=== PATIENT | female | born 1970 | race Caucasian/White ===

== ENCOUNTER 2016-09-03 22:18 | Inpatient (IN) | payer OTHER ==
[~2016-09-03] VITALS: Ht 162.6 cm; Wt 69.0 kg
--- NOTE | ~2016-09-03 | PROC NOTE ---
[place], [place] PROCEDURE NOTE NAME: JOSH BAPTISTE UNIT #: [id number] ROOM: DOCTOR: GERSON PALOMINO MD BIRTHDATE: [birth year] DOS: 09/03/2016 PREOPERATIVE DIAGNOSES: Gastroesophageal reflux disease, constipation. POSTOPERATIVE DIAGNOSES: Gastroesophageal reflux disease, constipation. PROCEDURE: EGD, attempted colonoscopy. ENDOSCOPIST: Gerson Palomino MD PUBLIC INFORMATION RELATIONS MANAGER: PGY1. ANESTHESIA: MAC. INDICATIONS: This is a 45-year-old lady who has a history of previous gastric bypass and is having some symptoms of GERD and is on Prilosec as well as has history of constipation, who is here for the above-mentioned procedure. The procedure and its complications were explained to the patient in detail preoperatively. Complications that were discussed included but were not limited to bleeding, missed lesions, colon and gastric perforation. She agreed to proceed. DESCRIPTION OF PROCEDURE: After identifying the patient, the patient was brought to the operating suite and laid in the left lateral position. After IV sedation was administered, a bite block was placed and the EGD was performed first. An adult gastroscope was placed through the mouth and advanced sequentially into the pharynx, esophagus and to the stomach remnant. Both the afferent and the efferent limbs were visualized. There was found to be gastritis in the gastric remnant, but no active bleeding. There was mild esophagitis as well. These findings were confirmed upon withdrawal of the scope. I then turned towards the colonoscopy. A digital rectal exam was performed, which was found to be within normal limits, but there was a lot of stool, but no blood that could be seen. An adult colonoscope was now introduced into the anal canal, but it was very evident right on introduction that the prep was very poor and no visualization could be obtained. The scope was then withdrawn and the patient was then taken to the recovery room in stable fashion. There were no complications. Dr. Gerson Palomino, the attending endoscopist, was present throughout the operating case. [place], [place] PROCEDURE NOTE NAME: JOSH BAPTISTE UNIT #: [id number] ROOM: DOCTOR: GERSON PALOMINO MD BIRTHDATE: [birth year] Gerson Palomino MD CM:NIKKIE:PROCEDURE NOTE [id number] GERSON PALOMINO MD
[2016-09-03 07:00] VITALS: BP 130/76
[2016-09-03 08:15] VITALS: BP 103/65
[2016-09-03 08:30] VITALS: BP 101/55
[2016-09-03 08:44] VITALS: BP 111/71
[~2016-09-03 22:18] MED LIST: ALBUTEROL0.09 MG/A1 INH; ALLEGRA180 MG PO; ANAPROX DS550 MG PO; ANUSOL-HC25 MG RC; AUGMENTIN 875 M1 TAB PO; AUGMENTIN 875875 MG PO; BACTRIM DS 8001 TA1 PO; BENADRYL25 MG PO; BENTYL10 MG PO; BIAXIN500 MG PO; BIOTIN1 M1 PO; BIOTIN1000 MC1 PO; BYETTA10 MCG/0.0 PO; BYETTA10 MCG/0.0 SC; CEFUROXIME AXE250 MG PO; CIPRO250 MG PO; CIPRO500 MG PO; CIPROFLOXACIN500 MG PO; CLARITIN-D 12 H1 TAB PO; CLARITIN10 MG PO; CYCLOBENZAPRINE10 MG PO; DAYPRO600 M1 PO; DIFLUCAN100 MG PO; FLINTSTONES1 CTB PO; GLIPIZIDE10 MG PO; GLIPIZIDE5 MG PO; GLUCOPHAGE1000 MG PO; GLUCOPHAGE500 M1 PO; HYDROCODONE BIT1 T11 PO; IMODIUM2 MG PO; LEVOFLOXACIN500 MG PO; LOMOTIL 0.025 M1 TAB PO; LOPID600 MG PO; MACROBID100 M1 PO; MEDROL DOSEPAK4 MG PO; METFORMIN HCL1000 MG PO; METFORMIN1000 MG PO; MIDRIN (DURADR1 CAP PO; MOBIC7.5 MG PO; MOTRIN800 MG PO; Motrin,Rufen800 MG PO; NAPROSYN500 MG PO; NAPROXEN500 M1 PO; ONGLYZA5 MG PO; OXYCONTIN10 MG PO; PEPCID20 MG PO; PHENERGAN W/DM120 ML PO; PHENERGAN25 M1 PO; PREDNISONE10 MG PO; PREDNISONE20 MG PO; PREVACID30 M1 PO; PREVACID30 MG PO; PROAIR HFA0.09 MG/AC IH; PROTONIX40 MG PO; PYRIDIUM200 MG PO; REGLAN10 MG PO; ROBAXIN750 MG PO; TORADOL10 MG PO; TRAMADOL HCL50 MG PO; TRIMOX,POL250 MG/5 M PO; ULTRAM50 MG PO; VICODIN 500 MG-1 TAB PO; VITAMIN D2000 IU PO; VITAMIN D50000 I3 PO; WELCHOL625 MG PO; XANAX0.25 MG PO; ZITHROMAX Z PA250 MG PO; ZITHROMAX250 MG PO; ZOFRAN ODT4 MG SL; ZOFRAN ODT8 MG PO; ZOFRAN4 MG PO; Zofran4 MG PO
[2016-09-03 22:23] VITALS: BP 143/85
[2016-09-03 22:49] LABS: BASO % 0.3 % (0.0-1.0); EOS # 0.1 10*3/uL (0.0-0.4); EOS % 0.5 % (1.0-4.0); HEMATOCRIT 35.6 % (37.0-47.0); HEMOGLOBIN 11.2 g/dl (12.0-16.0); LYMPH # 2.4 10*3/uL (1.3-4.4); LYMPH % 20.8 % (27.0-41.0); MEAN CELL VOLUME 65.8 fl (81.0-99.0); MEAN CORPUSCULAR HGB 20.7 pg (27.0-31.0); MEAN CORPUSCULAR HGB CONC 31.5 g/dl (33.0-37.0); MEAN PLATELET VOLUME 10.1 fl (9.6-12.3); MONO # 0.6 10*3/uL (0.1-1.0); MONO % 4.9 % (3.0-9.0); NEUT # 8.4 10*3/uL (2.3-7.9); NEUT % 73.2 % (47.0-73.0); PLATELET COUNT AUTOMATED 354 10*3/uL (130-400); RED BLOOD COUNT 5.41 10*6/uL (4.10-5.10); RED CELL DISTRI WIDTH 15.3 % (0-14.5); WHITE BLOOD COUNT 11.5 10*3/uL (4.8-10.8)
[2016-09-03 23:02] LABS: ALBUMIN 3.5 gm/dl (3.1-4.5); ALKALINE PHOSPHATASE 56 U/L (45-117); BILIRUBIN, TOTAL 0.3 mg/dl (0.2-1.0); BUN 14 mg/dl (7-24); CARBON DIOXIDE 29 mmol/L (21-32); CHLORIDE 106 mmol/L (98-107); EST GLOM FILT AFRICAN AMERICAN > 60 ml/min; GLUCOSE 137 mg/dL (65-99); POTASSIUM 4.4 mmol/L (3.5-5.1); SGOT/AST 10 IU/L (3-35); SGPT/ALT 21 U/L (12-78); SODIUM 144 mmol/L (136-145); TOTAL PROTEIN 6.5 gm/dL (6.4-8.2)
[2016-09-04 03:30] VITALS: BP 132/76
[2016-09-04 06:24] LABS: BASO % 0.4 % (0.0-1.0); EOS # 0.1 10*3/uL (0.0-0.4); EOS % 0.9 % (1.0-4.0); HEMATOCRIT 33.3 % (37.0-47.0); HEMOGLOBIN 10.3 g/dl (12.0-16.0); LYMPH # 2.7 10*3/uL (1.3-4.4); LYMPH % 26.8 % (27.0-41.0); MEAN CELL VOLUME 66.2 fl (81.0-99.0); MEAN CORPUSCULAR HGB 20.5 pg (27.0-31.0); MEAN CORPUSCULAR HGB CONC 30.9 g/dl (33.0-37.0); MEAN PLATELET VOLUME 10.5 fl (9.6-12.3); MONO # 0.6 10*3/uL (0.1-1.0); MONO % 6.2 % (3.0-9.0); NEUT # 6.6 10*3/uL (2.3-7.9); NEUT % 65.4 % (47.0-73.0); PLATELET COUNT AUTOMATED 305 10*3/uL (130-400); RED BLOOD COUNT 5.03 10*6/uL (4.10-5.10); RED CELL DISTRI WIDTH 15.3 % (0-14.5); WHITE BLOOD COUNT 10.1 10*3/uL (4.8-10.8)
[2016-09-04 06:48] LABS: ALKALINE PHOSPHATASE 50 U/L (45-117); BILIRUBIN, TOTAL 0.5 mg/dl (0.2-1.0); BUN 11 mg/dl (7-24); CARBON DIOXIDE 30 mmol/L (21-32); CHLORIDE 107 mmol/L (98-107); CHOLESTEROL 114 mg/dL (<200); EST GLOM FILT AFRICAN AMERICAN > 60 ml/min; FREE T4 1.05 ng/dl (0.76-1.46); GLUCOSE 96 mg/dL (65-99); HDL CHOLESTEROL 41 mg/dl (40-60); LDL CHOLESTEROL 60 mg/dL (9-159); PHOSPHOROUS 3.2 mg/dL (2.5-4.9); POTASSIUM 3.7 mmol/L (3.5-5.1); SGOT/AST 7 IU/L (3-35); SGPT/ALT 18 U/L (12-78); SODIUM 142 mmol/L (136-145); TOTAL PROTEIN 5.6 gm/dL (6.4-8.2); TRIGLYCERIDES 65 mg/dl (<150); VLDL CHOLESTEROL 13 mg/dL (6-40)
[2016-09-04 06:49] LABS: PROTHROMBIN TIME 10.9 SECONDS (9.0-12.4)
[2016-09-04 06:53] LABS: THYROID STIM HORMONE (HS) 0.956 uIU/ml (0.358-4.75)
[2016-09-04 07:01] LABS: HEMOGLOBIN A1c 5.2 % (4.8-5.6)
[2016-09-04 07:56] LABS: FOLIC ACID 3.2 ng/mL (>5.38); VITAMIN D, 25-HYDROXY 15.1 ng/mL (30-100)
[2016-09-04 08:00] VITALS: BP 120/80
[2016-09-04 08:59] LABS: BILIRUBIN NEGATIVE (NEGATIVE); BLOOD NEGATIVE (NEGATIVE); CLARITY SL CLOUDY (CLEAR); COLOR YELLOW (YELLOW); GLUCOSE NEGATIVE (NEGATIVE); KETONE NEGATIVE (NEGATIVE); LEUKO ESTERASE NEGATIVE (NEGATIVE); NITRITE POSITIVE (NEGATIVE); PH 5.5 (5.0-9.0); PROTEIN NEGATIVE (NEGATIVE); SPECIFIC GRAVITY 1.015 (1.005-1.030)
[2016-09-04 09:18] LABS: BACTERIA 3+; RBC 0-2 rbc/hpf (0-2); URINE REFLEX COMMENT YES (NO)
[2016-09-04 12:00] VITALS: BP 126/78
[2016-09-04 16:00] VITALS: BP 102/63
[2016-09-04 20:00] VITALS: BP 111/57
[2016-09-05 08:00] VITALS: BP 124/72
[2016-09-05 12:00] VITALS: BP 118/66
[2016-09-05] MEDS ORDERED: Carafate1 GM/10 ML PO (15:20)
[2016-09-05] MEDS ORDERED: NATURE'S BLEND F1 MG PO (15:20)
[2016-09-05] MEDS ORDERED: B12100 MC1 PO (15:20)
[2016-09-05 16:00] VITALS: BP 118/71
[2016-09-05] MEDS ORDERED: BACTRIM DS 8001 TA1 PO (16:22)
== END 2016-09-05 16:56 | disposition home or self-care (01) | DRG 392 ==
LOC: ED 22:19 → EDHOLD 09-04 01:17 → 4E 09-04 01:33
PROVIDERS: Family Medicine; Physician Assistant
PROC: 0DJ08ZZ Inspection of Upper Intestinal Tract, Via Natural or Artificial Opening Endoscopic (ICD-10-PCS; principal; 2016-09-04)
PROC: 0DJD8ZZ Inspection of Lower Intestinal Tract, Via Natural or Artificial Opening Endoscopic (ICD-10-PCS; 2016-09-04)
DX: K29.70 Gastritis, unspecified, without bleeding (principal); E44.0 Moderate protein-calorie malnutrition; K21.0 Gastro-esophageal reflux disease with esophagitis; J45.909 Unspecified asthma, uncomplicated; K59.00 Constipation, unspecified; E53.8 Deficiency of other specified B group vitamins; R73.9 Hyperglycemia, unspecified; E55.9 Vitamin D deficiency, unspecified; D72.829 Elevated white blood cell count, unspecified; D50.9 Iron deficiency anemia, unspecified; Z98.84 Bariatric surgery status; Z68.26 Body mass index [BMI] 26.0-26.9, adult; Z87.891 Personal history of nicotine dependence; Z90.49 Acquired absence of other specified parts of digestive tract; Z88.8 Allergy status to other drugs, medicaments and biological substances; Z83.3 Family history of diabetes mellitus; Z82.49 Family history of ischemic heart disease and other diseases of the circulatory system; Z80.49 Family history of malignant neoplasm of other genital organs; Z80.8 Family history of malignant neoplasm of other organs or systems

== ENCOUNTER → 2016-12-25 | Emergency (ER) | payer OTHER ==
[~2016-12-25] VITALS: Ht 162.5 cm; Wt 64.4 kg
[~2016-12-25] MED LIST changes: +B12100 MC1 PO; +Carafate1 GM/10 ML PO; +NATURE'S BLEND F1 MG PO
== END ==
LOC: ED 21:57
DX: S52.601A Unspecified fracture of lower end of right ulna, initial encounter for closed fracture (principal); J45.909 Unspecified asthma, uncomplicated; K21.9 Gastro-esophageal reflux disease without esophagitis; F17.200 Nicotine dependence, unspecified, uncomplicated; Z88.6 Allergy status to analgesic agent; Z88.8 Allergy status to other drugs, medicaments and biological substances; Z79.899 Other long term (current) drug therapy; W10.9XXA Fall (on) (from) unspecified stairs and steps, initial encounter; Y93.01 Activity, walking, marching and hiking; Y92.89 Other specified places as the place of occurrence of the external cause; Y99.8 Other external cause status

== ENCOUNTER 2016-12-27 22:59 | Emergency (ER) | payer OTHER ==
[2016-12-27 23:23] LABS: BILIRUBIN NEGATIVE (NEGATIVE); BLOOD NEGATIVE (NEGATIVE); CLARITY CLEAR (CLEAR); COLOR YELLOW (YELLOW); GLUCOSE NEGATIVE (NEGATIVE); KETONE TRACE (NEGATIVE); LEUKO ESTERASE NEGATIVE (NEGATIVE); NITRITE NEGATIVE (NEGATIVE); PH 5.5 (5.0-9.0); PROTEIN NEGATIVE (NEGATIVE); SPECIFIC GRAVITY >= 1.030 (1.005-1.030); UROBILINOGEN 0.2 E.U./dl (0.2-1.0)
[2016-12-27 23:29] LABS: BACTERIA 1+
[2016-12-27 23:31] LABS: URINE REFLEX COMMENT NO (NO)
[2016-12-28] MEDS ORDERED: ULTRAM50 MG PO (01:46)
[2016-12-28] MEDS ORDERED: ZOFRAN ODT4 MG SL (01:46)
== END 2016-12-28 02:29 | disposition home or self-care (01) ==
LOC: ED 22:59
PROVIDERS: Emergency Medicine Emergency Medical Services
DX: K29.00 Acute gastritis without bleeding (principal); K21.9 Gastro-esophageal reflux disease without esophagitis; J45.909 Unspecified asthma, uncomplicated; Z98.84 Bariatric surgery status; F17.200 Nicotine dependence, unspecified, uncomplicated; Z88.6 Allergy status to analgesic agent; Z88.8 Allergy status to other drugs, medicaments and biological substances; Z79.899 Other long term (current) drug therapy

== ENCOUNTER 2017-01-24 18:04 | Emergency (ER) | payer OTHER ==
[~2017-01-24] VITALS: Ht 162.5 cm; Wt 66.2 kg
[2017-01-24] MEDS ORDERED: CYCLOBENZAPRINE10 MG PO (19:46)
[2017-01-24] MEDS ORDERED: NAPROSYN500 MG PO (19:46)
== END 2017-01-24 22:09 | disposition home or self-care (01) ==
LOC: ED 18:04
DX: S29.019A Strain of muscle and tendon of unspecified wall of thorax, initial encounter (principal); Z88.6 Allergy status to analgesic agent; Z88.8 Allergy status to other drugs, medicaments and biological substances; Z79.899 Other long term (current) drug therapy; Z87.891 Personal history of nicotine dependence; X58.XXXA Exposure to other specified factors, initial encounter; Y93.89 Activity, other specified; Y92.89 Other specified places as the place of occurrence of the external cause; Y99.8 Other external cause status

== ENCOUNTER 2017-03-15 07:51 | Emergency (ER) | payer OTHER ==
[~2017-03-15] VITALS: Ht 160 cm; Wt 65.8 kg
== END 2017-03-15 10:15 | disposition home or self-care (01) ==
LOC: ED 07:51
DX: S60.512A Abrasion of left hand, initial encounter (principal); M53.3 Sacrococcygeal disorders, not elsewhere classified; J45.909 Unspecified asthma, uncomplicated; G89.29 Other chronic pain; K21.9 Gastro-esophageal reflux disease without esophagitis; F17.200 Nicotine dependence, unspecified, uncomplicated; Z98.890 Other specified postprocedural states; Z98.84 Bariatric surgery status; Z90.710 Acquired absence of both cervix and uterus; Z79.899 Other long term (current) drug therapy; Z88.6 Allergy status to analgesic agent; Z88.5 Allergy status to narcotic agent; W10.8XXA Fall (on) (from) other stairs and steps, initial encounter; Y93.89 Activity, other specified; Y92.89 Other specified places as the place of occurrence of the external cause; Y99.9 Unspecified external cause status

== ENCOUNTER 2017-03-28 22:44 | Emergency (ER) | payer OTHER ==
[~2017-03-28] VITALS: Ht 162.5 cm; Wt 68.0 kg
[2017-03-28] MEDS ORDERED: SEPTDS PO (23:29)
== END 2017-03-28 23:33 | disposition home or self-care (01) ==
LOC: ED 22:44
DX: J32.9 Chronic sinusitis, unspecified (principal); J45.909 Unspecified asthma, uncomplicated; K21.9 Gastro-esophageal reflux disease without esophagitis; F17.200 Nicotine dependence, unspecified, uncomplicated; Z88.6 Allergy status to analgesic agent; Z88.8 Allergy status to other drugs, medicaments and biological substances; Z79.899 Other long term (current) drug therapy

== ENCOUNTER 2017-06-11 20:26 | Emergency (ER) | payer OTHER ==
[~2017-06-11] VITALS: Ht 160 cm; Wt 70.3 kg
[~2017-06-11 20:26] MED LIST changes: +SEPTDS PO
[2017-06-11 21:24] LABS: BILIRUBIN NEGATIVE (NEGATIVE); BLOOD TRACE-INTACT (NEGATIVE); CLARITY SL CLOUDY (CLEAR); COLOR YELLOW (YELLOW); GLUCOSE NEGATIVE (NEGATIVE); KETONE TRACE (NEGATIVE); LEUKO ESTERASE 1+ (NEGATIVE); NITRITE POSITIVE (NEGATIVE)
[2017-06-11 21:37] LABS: BACTERIA 2+; EPITHELIAL CELLS TNTC; WBC 21-30 wbc/hpf (0-5)
[2017-06-11 21:41] LABS: BASO % 0.4 % (0.0-1.0); EOS % 0.3 % (1.0-4.0); HEMATOCRIT 34.9 % (37.0-47.0); LYMPH # 2.2 10*3/uL (1.3-4.4); LYMPH % 24.4 % (27.0-41.0); MEAN CELL VOLUME 65.7 fl (81.0-99.0); MEAN CORPUSCULAR HGB 20.7 pg (27.0-31.0); MEAN CORPUSCULAR HGB CONC 31.5 g/dl (33.0-37.0); MEAN PLATELET VOLUME 10.3 fl (9.6-12.3); MONO # 0.9 10*3/uL (0.1-1.0); MONO % 9.3 % (3.0-9.0); NEUT % 65.4 % (47.0-73.0); PLATELET COUNT AUTOMATED 323 10*3/uL (130-400); RED BLOOD COUNT 5.31 10*6/uL (4.10-5.10); RED CELL DISTRI WIDTH 14.7 % (0-14.5); WHITE BLOOD COUNT 9.1 10*3/uL (4.8-10.8)
[2017-06-11 23:01] LABS: ALKALINE PHOSPHATASE 59 U/L (45-117); BUN 14 mg/dl (7-24); CHLORIDE 105 mmol/L (98-107); POTASSIUM 3.7 mmol/L (3.5-5.1); SGOT/AST 4 IU/L (3-35); SGPT/ALT 16 U/L (12-78); SODIUM 140 mmol/L (136-145); TOTAL PROTEIN 6.5 gm/dL (6.4-8.2)
== END 2017-06-12 00:06 | disposition home or self-care (01) ==
LOC: ED 20:26
PROVIDERS: Emergency Medicine
DX: N39.0 Urinary tract infection, site not specified (principal); K21.9 Gastro-esophageal reflux disease without esophagitis; J45.909 Unspecified asthma, uncomplicated; G89.29 Other chronic pain; Z87.19 Personal history of other diseases of the digestive system; Z79.899 Other long term (current) drug therapy; Z88.6 Allergy status to analgesic agent; Z88.5 Allergy status to narcotic agent; Z88.8 Allergy status to other drugs, medicaments and biological substances; Z90.710 Acquired absence of both cervix and uterus

== ENCOUNTER 2017-09-03 22:27 | Emergency (ER) | payer OTHER ==
[~2017-09-03] VITALS: Ht 160 cm; Wt 70.3 kg
[2017-09-03] MEDS ORDERED: AUGMENTIN 875-875 MG PO (22:34)
[2017-09-03] MEDS ORDERED: ALLEGRA-D 24 H1 EACH PO (22:34)
[2017-09-03] MEDS ORDERED: FLONASE ALLERG9.9 ML NAS (22:34)
== END 2017-09-03 22:40 | disposition home or self-care (01) ==
LOC: ED 22:27
DX: H66.91 Otitis media, unspecified, right ear (principal); J01.10 Acute frontal sinusitis, unspecified; Z98.890 Other specified postprocedural states; Z90.710 Acquired absence of both cervix and uterus; Z98.84 Bariatric surgery status; Z79.899 Other long term (current) drug therapy; Z87.891 Personal history of nicotine dependence; Z88.6 Allergy status to analgesic agent; Z88.5 Allergy status to narcotic agent; Z88.8 Allergy status to other drugs, medicaments and biological substances

== ENCOUNTER 2017-09-18 23:30 | Emergency (ER) | payer OTHER ==
[~2017-09-18] VITALS: Ht 162.5 cm; Wt 70.3 kg
[~2017-09-18 23:30] MED LIST changes: +ALLEGRA-D 24 H1 EACH PO; +AUGMENTIN 875-875 MG PO; +FLONASE ALLERG9.9 ML NAS
[2017-09-19 01:17] LABS: BASO % 0.5 % (0.0-1.0); EOS # 0.3 10*3/uL (0.0-0.4); EOS % 3.7 % (1.0-4.0); HEMATOCRIT 31.7 % (37.0-47.0); HEMOGLOBIN 9.7 g/dl (12.0-16.0); LYMPH # 2.4 10*3/uL (1.3-4.4); LYMPH % 27.3 % (27.0-41.0); MEAN CELL VOLUME 67.2 fl (81.0-99.0); MEAN CORPUSCULAR HGB 20.6 pg (27.0-31.0); MEAN CORPUSCULAR HGB CONC 30.6 g/dl (33.0-37.0); MONO # 0.6 10*3/uL (0.1-1.0); NEUT # 5.4 10*3/uL (2.3-7.9); NEUT % 61.3 % (47.0-73.0); PLATELET COUNT AUTOMATED 336 10*3/uL (130-400); RED BLOOD COUNT 4.72 10*6/uL (4.10-5.10); RED CELL DISTRI WIDTH 15.2 % (0-14.5); WHITE BLOOD COUNT 8.7 10*3/uL (4.8-10.8)
== END 2017-09-19 01:49 | disposition home or self-care (01) ==
LOC: ED 23:30
PROVIDERS: Physician Assistant
DX: Z48.01 Encounter for change or removal of surgical wound dressing (principal); Z98.890 Other specified postprocedural states; Z87.891 Personal history of nicotine dependence; Z79.899 Other long term (current) drug therapy; Z88.6 Allergy status to analgesic agent; Z88.5 Allergy status to narcotic agent; Z88.8 Allergy status to other drugs, medicaments and biological substances

== ENCOUNTER 2018-06-13 20:28 | Emergency (ER) | payer OTHER ==
[~2018-06-13] VITALS: Ht 160 cm; Wt 70.3 kg
[~2018-06-13 20:28] MED LIST changes: +OMNICEF300 MG PO
[2018-06-13 21:36] LABS: BASO # 0.1 10*3/uL (0.0-0.1); BASO % 0.6 % (0.0-1.0); EOS % 0.2 % (1.0-4.0); HEMATOCRIT 36.6 % (37.0-47.0); HEMOGLOBIN 11.4 g/dl (12.0-16.0); LYMPH # 1.1 10*3/uL (1.3-4.4); LYMPH % 12.2 % (27.0-41.0); MEAN CELL VOLUME 66.8 fl (81.0-99.0); MEAN CORPUSCULAR HGB 20.8 pg (27.0-31.0); MEAN CORPUSCULAR HGB CONC 31.1 g/dl (33.0-37.0); MEAN PLATELET VOLUME 9.8 fl (9.6-12.3); MONO # 0.5 10*3/uL (0.1-1.0); NEUT # 7.3 10*3/uL (2.3-7.9); NEUT % 80.8 % (47.0-73.0); PLATELET COUNT AUTOMATED 297 10*3/uL (130-400); RED BLOOD COUNT 5.48 10*6/uL (4.10-5.10); RED CELL DISTRI WIDTH 15.6 % (0-14.5); WHITE BLOOD COUNT 9.1 10*3/uL (4.8-10.8)
[2018-06-13 21:53] LABS: ALBUMIN 3.6 gm/dl (3.1-4.5); ALKALINE PHOSPHATASE 54 U/L (45-117); BUN 14 mg/dl (7-24); CHLORIDE 107 mmol/L (98-107); LIPASE 91 U/L (73-393); POTASSIUM 3.9 mmol/L (3.5-5.1); SGOT/AST 8 IU/L (3-35); SGPT/ALT 24 U/L (12-78); SODIUM 140 mmol/L (136-145); TOTAL PROTEIN 7.2 gm/dL (6.4-8.2)
[2018-06-13 23:27] LABS: BILIRUBIN NEGATIVE (NEGATIVE); BLOOD NEGATIVE (NEGATIVE); CLARITY CLEAR (CLEAR); COLOR YELLOW (YELLOW); GLUCOSE NEGATIVE (NEGATIVE); KETONE NEGATIVE (NEGATIVE); LEUKO ESTERASE NEGATIVE (NEGATIVE); NITRITE POSITIVE (NEGATIVE); PH 6.5 (5.0-9.0); UROBILINOGEN 0.2 E.U./dl (0.2-1.0)
[2018-06-13 23:36] LABS: BACTERIA 2+; RBC 0-2 rbc/hpf (0-2)
[2018-06-13] MEDS ORDERED: ZOFRAN4 MG PO (23:48)
== END 2018-06-13 23:55 | disposition home or self-care (01) ==
LOC: ED 20:28
PROVIDERS: Physician Assistant
DX: K52.9 Noninfective gastroenteritis and colitis, unspecified (principal); Z88.6 Allergy status to analgesic agent; Z88.8 Allergy status to other drugs, medicaments and biological substances; Z79.899 Other long term (current) drug therapy; Z87.891 Personal history of nicotine dependence

== ENCOUNTER 2018-12-06 21:14 | Emergency (ER) | payer OTHER ==
[~2018-12-06] VITALS: Ht 162.5 cm; Wt 68.0 kg
[~2018-12-06 21:14] MED LIST changes: +TYLENOL WITH C1 EACH PO
[2018-12-06] MEDS ORDERED: IBU800 MG PO (21:42)
[2018-12-06] MEDS ORDERED: CYCLOBENZAPRINE10 MG PO (21:42)
== END 2018-12-06 21:50 | disposition home or self-care (01) ==
LOC: ED 21:14
DX: M54.5 Low back pain (principal); J45.909 Unspecified asthma, uncomplicated; G89.29 Other chronic pain; K21.9 Gastro-esophageal reflux disease without esophagitis; Z88.5 Allergy status to narcotic agent; Z88.6 Allergy status to analgesic agent; Z88.8 Allergy status to other drugs, medicaments and biological substances; Z79.899 Other long term (current) drug therapy; Z90.49 Acquired absence of other specified parts of digestive tract; Z87.891 Personal history of nicotine dependence; X50.1XXA Overexertion from prolonged static or awkward postures, initial encounter; X50.0XXA Overexertion from strenuous movement or load, initial encounter; Y93.89 Activity, other specified; Y92.89 Other specified places as the place of occurrence of the external cause; Y99.8 Other external cause status

== ENCOUNTER 2018-12-25 17:55 | Emergency (ER) | payer OTHER ==
[~2018-12-25] VITALS: Ht 160 cm; Wt 70.3 kg
[~2018-12-25 17:55] MED LIST changes: +IBU800 MG PO
[2018-12-25 18:46] LABS: BASO # 0.1 10*3/uL (0.0-0.1); BASO % 0.8 % (0.0-1.0); EOS # 0.3 10*3/uL (0.0-0.4); EOS % 3.3 % (1.0-4.0); HEMATOCRIT 39.8 % (37.0-47.0); HEMOGLOBIN 12.4 g/dl (12.0-16.0); LYMPH # 2.4 10*3/uL (1.3-4.4); LYMPH % 23.7 % (27.0-41.0); MEAN CELL VOLUME 68.5 fl (81.0-99.0); MEAN CORPUSCULAR HGB 21.3 pg (27.0-31.0); MEAN CORPUSCULAR HGB CONC 31.2 g/dl (33.0-37.0); MONO # 0.6 10*3/uL (0.1-1.0); MONO % 5.9 % (3.0-9.0); NEUT # 6.7 10*3/uL (2.3-7.9); NEUT % 66.1 % (47.0-73.0); PLATELET COUNT AUTOMATED 295 10*3/uL (130-400); RED BLOOD COUNT 5.81 10*6/uL (4.10-5.10); RED CELL DISTRI WIDTH 15.1 % (0-14.5); WHITE BLOOD COUNT 10.2 10*3/uL (4.8-10.8)
[2018-12-25 18:59] LABS: BILIRUBIN NEGATIVE (NEGATIVE); BLOOD NEGATIVE (NEGATIVE); CLARITY SL CLOUDY (CLEAR); COLOR YELLOW (YELLOW); GLUCOSE NEGATIVE (NEGATIVE); KETONE TRACE (NEGATIVE); LEUKO ESTERASE 1+ (NEGATIVE); NITRITE POSITIVE (NEGATIVE); PH 5.5 (5.0-9.0); SPECIFIC GRAVITY >= 1.030 (1.005-1.030)
[2018-12-25 19:04] LABS: ALKALINE PHOSPHATASE 52 U/L (45-117); BUN 15 mg/dl (7-24); CHLORIDE 105 mmol/L (98-107); CREATININE 0.79 mg/dL (0.55-1.02); LIPASE 99 U/L (73-393); POTASSIUM 4.1 mmol/L (3.5-5.1); SGOT/AST 8 IU/L (3-35); SGPT/ALT 20 U/L (12-78); SODIUM 140 mmol/L (136-145); TOTAL PROTEIN 7.3 gm/dL (6.4-8.2)
[2018-12-25 19:19] LABS: BACTERIA 4+
[2018-12-25 19:20] LABS: MUCOUS 1+
[2018-12-25] MEDS ORDERED: MACROBID100 M1 PO (20:44)
== END 2018-12-25 20:47 | disposition home or self-care (01) ==
LOC: ED 17:55
PROVIDERS: Nurse Practitioner Family
DX: K29.70 Gastritis, unspecified, without bleeding (principal); N39.0 Urinary tract infection, site not specified; J45.909 Unspecified asthma, uncomplicated; G89.29 Other chronic pain; K21.9 Gastro-esophageal reflux disease without esophagitis; Z90.710 Acquired absence of both cervix and uterus; Z87.891 Personal history of nicotine dependence; Z98.84 Bariatric surgery status

== ENCOUNTER 2019-02-10 22:33 | Emergency (ER) | payer OTHER ==
[~2019-02-10] VITALS: Ht 160 cm; Wt 68.0 kg
[2019-02-10] MEDS ORDERED: TUMS300 MG PO (22:54)
[2019-02-10] MEDS ORDERED: PROTONIX40 MG PO (22:54)
[2019-02-10] MEDS ORDERED: ONDANSETRON HYDR4 M1 PO (22:55)
[2019-02-10 23:26] LABS: BASO # 0.1 10*3/uL (0.0-0.1); BASO % 0.8 % (0.0-1.0); EOS # 0.3 10*3/uL (0.0-0.4); HEMATOCRIT 35.1 % (37.0-47.0); LYMPH # 2.3 10*3/uL (1.3-4.4); LYMPH % 29.2 % (27.0-41.0); MEAN CELL VOLUME 68.4 fl (81.0-99.0); MEAN CORPUSCULAR HGB 21.4 pg (27.0-31.0); MEAN CORPUSCULAR HGB CONC 31.3 g/dl (33.0-37.0); MEAN PLATELET VOLUME 10.4 fl (9.6-12.3); MONO # 0.5 10*3/uL (0.1-1.0); MONO % 5.9 % (3.0-9.0); NEUT # 4.8 10*3/uL (2.3-7.9); NEUT % 59.6 % (47.0-73.0); PLATELET COUNT AUTOMATED 300 10*3/uL (130-400); RED BLOOD COUNT 5.13 10*6/uL (4.10-5.10); RED CELL DISTRI WIDTH 15.5 % (0-14.5)
[2019-02-11 00:01] LABS: ALBUMIN 3.7 gm/dl (3.1-4.5); ALKALINE PHOSPHATASE 41 U/L (45-117); BUN 22 mg/dl (7-24); CHLORIDE 107 mmol/L (98-107); CREATININE 0.79 mg/dL (0.55-1.02); LIPASE 103 U/L (73-393); POTASSIUM 3.9 mmol/L (3.5-5.1); SGOT/AST 8 IU/L (3-35); SGPT/ALT 19 U/L (12-78); SODIUM 142 mmol/L (136-145); TOTAL PROTEIN 6.5 gm/dL (6.4-8.2)
[2019-02-11] MEDS ORDERED: ZOFRAN4 MG PO (00:55)
== END 2019-02-11 01:28 | disposition home or self-care (01) ==
LOC: ED 22:33
PROVIDERS: Emergency Medicine Emergency Medical Services
DX: K21.9 Gastro-esophageal reflux disease without esophagitis (principal); E86.0 Dehydration; J45.909 Unspecified asthma, uncomplicated; Z88.6 Allergy status to analgesic agent; Z79.899 Other long term (current) drug therapy; Z87.891 Personal history of nicotine dependence; Z98.84 Bariatric surgery status; Z90.710 Acquired absence of both cervix and uterus

== ENCOUNTER 2019-04-24 18:01 | Emergency (ER) | payer OTHER ==
[~2019-04-24] VITALS: Ht 160 cm; Wt 67.1 kg
[~2019-04-24 18:01] MED LIST changes: +ONDANSETRON HYDR4 M1 PO; +TUMS300 MG PO
== END 2019-04-24 20:11 | disposition home or self-care (01) ==
LOC: ED 18:01
DX: G43.909 Migraine, unspecified, not intractable, without status migrainosus (principal); K21.9 Gastro-esophageal reflux disease without esophagitis; J45.909 Unspecified asthma, uncomplicated; E78.1 Pure hyperglyceridemia; Z88.5 Allergy status to narcotic agent; Z79.899 Other long term (current) drug therapy; Z87.891 Personal history of nicotine dependence

== ENCOUNTER 2019-08-09 20:06 | Emergency (ER) | payer OTHER ==
[~2019-08-09] VITALS: Ht 160 cm; Wt 70.3 kg
[2019-08-09 20:30] LABS: BILIRUBIN NEGATIVE (NEGATIVE); BLOOD NEGATIVE (NEGATIVE); CLARITY CLOUDY (CLEAR); COLOR YELLOW (YELLOW); GLUCOSE NEGATIVE (NEGATIVE); KETONE NEGATIVE (NEGATIVE); LEUKO ESTERASE TRACE (NEGATIVE); NITRITE POSITIVE (NEGATIVE); PH 6.5 (5.0-9.0); UROBILINOGEN 0.2 E.U./dl (0.2-1.0)
[2019-08-09 20:36] LABS: BACTERIA 4+; EPITHELIAL CELLS 41-50
[2019-08-09 20:57] LABS: BASO # 0.1 10*3/uL (0.0-0.1); BASO % 0.6 % (0.0-1.0); EOS # 0.3 10*3/uL (0.0-0.4); EOS % 2.9 % (1.0-4.0); HEMOGLOBIN 11.1 g/dl (12.0-16.0); LYMPH # 2.2 10*3/uL (1.3-4.4); LYMPH % 23.5 % (27.0-41.0); MEAN CELL VOLUME 68.4 fl (81.0-99.0); MEAN CORPUSCULAR HGB 21.1 pg (27.0-31.0); MEAN CORPUSCULAR HGB CONC 30.8 g/dl (33.0-37.0); MEAN PLATELET VOLUME 10.3 fl (9.6-12.3); MONO # 0.7 10*3/uL (0.1-1.0); MONO % 7.5 % (3.0-9.0); NEUT # 6.2 10*3/uL (2.3-7.9); NEUT % 65.2 % (47.0-73.0); PLATELET COUNT AUTOMATED 314 10*3/uL (130-400); RED BLOOD COUNT 5.26 10*6/uL (4.10-5.10); RED CELL DISTRI WIDTH 16.5 % (0-14.5); WHITE BLOOD COUNT 9.5 10*3/uL (4.8-10.8)
[2019-08-09 21:12] LABS: ALBUMIN 3.3 gm/dl (3.1-4.5); ALKALINE PHOSPHATASE 44 U/L (45-117); BUN 12 mg/dl (7-24); CHLORIDE 107 mmol/L (98-107); CREATININE 0.57 mg/dL (0.55-1.02); POTASSIUM 3.7 mmol/L (3.5-5.1); SGOT/AST 6 IU/L (3-35); SGPT/ALT 24 U/L (12-78); SODIUM 138 mmol/L (136-145); TOTAL PROTEIN 6.5 gm/dL (6.4-8.2)
[2019-08-09] MEDS ORDERED: CEPHALEXIN500 M1 PO (21:35)
== END 2019-08-09 21:24 | disposition home or self-care (01) ==
LOC: ED 20:06
PROVIDERS: Emergency Medicine
DX: N39.0 Urinary tract infection, site not specified (principal); K21.9 Gastro-esophageal reflux disease without esophagitis; J45.909 Unspecified asthma, uncomplicated; N83.202 Unspecified ovarian cyst, left side; Z88.6 Allergy status to analgesic agent; Z79.899 Other long term (current) drug therapy; Z87.891 Personal history of nicotine dependence; Z87.442 Personal history of urinary calculi

== ENCOUNTER 2019-08-30 06:56 | Emergency (ER) | payer OTHER ==
[~2019-08-30] VITALS: Ht 160 cm; Wt 73.5 kg
[~2019-08-30 06:56] MED LIST changes: +CEPHALEXIN500 M1 PO
[2019-08-30] MEDS ORDERED: BACTRIM 400-801 EACH PO (07:31)
[2019-08-30 08:27] LABS: BASO # 0.1 10*3/uL (0.0-0.1); BASO % 1.3 % (0.0-1.0); EOS # 0.4 10*3/uL (0.0-0.4); EOS % 5.7 % (1.0-4.0); HEMATOCRIT 37.3 % (37.0-47.0); HEMOGLOBIN 11.6 g/dl (12.0-16.0); LYMPH # 1.9 10*3/uL (1.3-4.4); LYMPH % 28.3 % (27.0-41.0); MEAN CELL VOLUME 67.5 fl (81.0-99.0); MEAN CORPUSCULAR HGB CONC 31.1 g/dl (33.0-37.0); MEAN PLATELET VOLUME 9.6 fl (9.6-12.3); MONO # 0.5 10*3/uL (0.1-1.0); MONO % 7.6 % (3.0-9.0); NEUT # 3.8 10*3/uL (2.3-7.9); NEUT % 56.8 % (47.0-73.0); PLATELET COUNT AUTOMATED 314 10*3/uL (130-400); RED BLOOD COUNT 5.53 10*6/uL (4.10-5.10); RED CELL DISTRI WIDTH 15.6 % (0-14.5); WHITE BLOOD COUNT 6.7 10*3/uL (4.8-10.8)
[2019-08-30 08:44] LABS: ALBUMIN 3.6 gm/dl (3.1-4.5); ALKALINE PHOSPHATASE 45 U/L (45-117); BUN 15 mg/dl (7-24); CHLORIDE 109 mmol/L (98-107); CREATININE 0.82 mg/dL (0.55-1.02); LIPASE 103 U/L (73-393); POTASSIUM 4.1 mmol/L (3.5-5.1); SGOT/AST 11 IU/L (3-35); SGPT/ALT 27 U/L (12-78); SODIUM 140 mmol/L (136-145); TOTAL PROTEIN 6.9 gm/dL (6.4-8.2)
[2019-08-30 08:57] LABS: BETA-HCG, QUANT < 1.0 mIU/mL (1-3)
[2019-08-30] MEDS ORDERED: Motrin,Rufen800 MG PO (09:07)
== END 2019-08-30 09:11 | disposition home or self-care (01) ==
LOC: ED 06:56
PROVIDERS: Emergency Medicine
DX: N39.0 Urinary tract infection, site not specified (principal); K21.9 Gastro-esophageal reflux disease without esophagitis; J45.909 Unspecified asthma, uncomplicated; E78.1 Pure hyperglyceridemia; F17.200 Nicotine dependence, unspecified, uncomplicated; Z88.5 Allergy status to narcotic agent; Z79.2 Long term (current) use of antibiotics; Z79.899 Other long term (current) drug therapy; Z90.49 Acquired absence of other specified parts of digestive tract; Z90.710 Acquired absence of both cervix and uterus; Z98.890 Other specified postprocedural states; Z87.442 Personal history of urinary calculi

== ENCOUNTER 2019-09-10 23:41 | Emergency (ER) | payer OTHER ==
[~2019-09-10] VITALS: Ht 160 cm; Wt 70.3 kg
[~2019-09-10 23:41] MED LIST changes: +BACTRIM 400-801 EACH PO
[2019-09-11 00:30] LABS: BASO # 0.1 10*3/uL (0.0-0.1); BASO % 0.7 % (0.0-1.0); EOS # 0.5 10*3/uL (0.0-0.4); EOS % 4.2 % (1.0-4.0); HEMATOCRIT 33.2 % (37.0-47.0); LYMPH # 3.2 10*3/uL (1.3-4.4); LYMPH % 28.9 % (27.0-41.0); MEAN CELL VOLUME 67.6 fl (81.0-99.0); MEAN CORPUSCULAR HGB 21.2 pg (27.0-31.0); MEAN CORPUSCULAR HGB CONC 31.3 g/dl (33.0-37.0); MEAN PLATELET VOLUME 9.6 fl (9.6-12.3); MONO # 0.8 10*3/uL (0.1-1.0); MONO % 7.1 % (3.0-9.0); NEUT # 6.5 10*3/uL (2.3-7.9); NEUT % 58.8 % (47.0-73.0); PLATELET COUNT AUTOMATED 269 10*3/uL (130-400); RED BLOOD COUNT 4.91 10*6/uL (4.10-5.10); WHITE BLOOD COUNT 11.1 10*3/uL (4.8-10.8)
[2019-09-11 00:43] LABS: ALBUMIN 3.4 gm/dl (3.1-4.5); ALKALINE PHOSPHATASE 45 U/L (45-117); BUN 12 mg/dl (7-24); CHLORIDE 110 mmol/L (98-107); CREATININE 0.69 mg/dL (0.55-1.02); LIPASE 99 U/L (73-393); POTASSIUM 4.2 mmol/L (3.5-5.1); SGOT/AST 12 IU/L (3-35); SGPT/ALT 28 U/L (12-78); SODIUM 142 mmol/L (136-145); TOTAL PROTEIN 6.4 gm/dL (6.4-8.2)
[2019-09-11 01:05] LABS: BILIRUBIN NEGATIVE (NEGATIVE); BLOOD NEGATIVE (NEGATIVE); CLARITY CLEAR (CLEAR); COLOR YELLOW (YELLOW); GLUCOSE NEGATIVE (NEGATIVE); KETONE NEGATIVE (NEGATIVE); LEUKO ESTERASE NEGATIVE (NEGATIVE); NITRITE NEGATIVE (NEGATIVE); UROBILINOGEN 0.2 E.U./dl (0.2-1.0)
== END 2019-09-11 03:16 | disposition home or self-care (01) ==
LOC: ED 23:41
PROVIDERS: Physician Assistant
DX: N83.202 Unspecified ovarian cyst, left side (principal); J45.909 Unspecified asthma, uncomplicated; K21.9 Gastro-esophageal reflux disease without esophagitis; Z79.899 Other long term (current) drug therapy; Z79.2 Long term (current) use of antibiotics

== ENCOUNTER 2019-09-16 16:49 | Emergency (ER) | payer OTHER ==
[~2019-09-16] VITALS: Ht 160 cm; Wt 72.6 kg
[2019-09-16 17:18] LABS: BILIRUBIN NEGATIVE (NEGATIVE); BLOOD TRACE-INTACT (NEGATIVE); CLARITY CLEAR (CLEAR); COLOR YELLOW (YELLOW); GLUCOSE NEGATIVE (NEGATIVE); KETONE TRACE (NEGATIVE); LEUKO ESTERASE NEGATIVE (NEGATIVE); NITRITE NEGATIVE (NEGATIVE); PH 7.5 (5.0-9.0); SPECIFIC GRAVITY 1.015 (1.005-1.030); UROBILINOGEN 0.2 E.U./dl (0.2-1.0)
[2019-09-16 17:32] LABS: BACTERIA TRACE; RBC 0-2 rbc/hpf (0-2); WBC 0-2 wbc/hpf (0-5)
[2019-09-16 17:46] LABS: BASO # 0.1 10*3/uL (0.0-0.1); BASO % 0.9 % (0.0-1.0); EOS # 0.5 10*3/uL (0.0-0.4); HEMATOCRIT 33.5 % (37.0-47.0); LYMPH # 2.5 10*3/uL (1.3-4.4); LYMPH % 26.9 % (27.0-41.0); MEAN CELL VOLUME 68.2 fl (81.0-99.0); MEAN CORPUSCULAR HGB 21.4 pg (27.0-31.0); MEAN CORPUSCULAR HGB CONC 31.3 g/dl (33.0-37.0); MEAN PLATELET VOLUME 9.7 fl (9.6-12.3); MONO # 0.7 10*3/uL (0.1-1.0); MONO % 7.7 % (3.0-9.0); NEUT # 5.5 10*3/uL (2.3-7.9); NEUT % 59.1 % (47.0-73.0); PLATELET COUNT AUTOMATED 257 10*3/uL (130-400); RED BLOOD COUNT 4.91 10*6/uL (4.10-5.10); RED CELL DISTRI WIDTH 16.4 % (0-14.5); WHITE BLOOD COUNT 9.3 10*3/uL (4.8-10.8)
[2019-09-16 18:01] LABS: ALBUMIN 3.4 gm/dl (3.1-4.5); ALKALINE PHOSPHATASE 46 U/L (45-117); BUN 15 mg/dl (7-24); CHLORIDE 110 mmol/L (98-107); CREATININE 0.91 mg/dL (0.55-1.02); LIPASE 91 U/L (73-393); POTASSIUM 3.7 mmol/L (3.5-5.1); SGOT/AST 13 IU/L (3-35); SGPT/ALT 28 U/L (12-78); SODIUM 140 mmol/L (136-145); TOTAL PROTEIN 6.5 gm/dL (6.4-8.2)
[2019-09-16] MEDS ORDERED: MIRALAX POWDER17 G1 PO (19:09)
== END 2019-09-16 19:31 | disposition home or self-care (01) ==
LOC: ED 16:49
PROVIDERS: Emergency Medicine; Physician Assistant
DX: K59.00 Constipation, unspecified (principal); R73.9 Hyperglycemia, unspecified; K21.9 Gastro-esophageal reflux disease without esophagitis; J45.909 Unspecified asthma, uncomplicated; Z79.899 Other long term (current) drug therapy; Z90.49 Acquired absence of other specified parts of digestive tract

== ENCOUNTER 2019-10-03 13:34 | Emergency (ER) | payer OTHER ==
[~2019-10-03] VITALS: Ht 160 cm; Wt 70.3 kg
[~2019-10-03 13:34] MED LIST changes: +MIRALAX POWDER17 G1 PO
[2019-10-03 15:36] LABS: BILIRUBIN NEGATIVE (NEGATIVE); BLOOD NEGATIVE (NEGATIVE); CLARITY CLEAR (CLEAR); COLOR STRAW (YELLOW); GLUCOSE NEGATIVE (NEGATIVE); KETONE NEGATIVE (NEGATIVE); NITRITE NEGATIVE (NEGATIVE); PH 6.5 (5.0-9.0); SPECIFIC GRAVITY 1.005 (1.005-1.030); UROBILINOGEN 0.2 E.U./dl (0.2-1.0)
[2019-10-03 15:42] LABS: BACTERIA TRACE; LEUKO ESTERASE NEGATIVE (NEGATIVE); RBC 0-2 rbc/hpf (0-2); WBC 0-2 wbc/hpf (0-5)
== END 2019-10-03 17:45 | disposition home or self-care (01) ==
LOC: ED 13:34
PROVIDERS: Nurse Practitioner Family
DX: N83.202 Unspecified ovarian cyst, left side (principal); K21.9 Gastro-esophageal reflux disease without esophagitis; J45.909 Unspecified asthma, uncomplicated; F17.200 Nicotine dependence, unspecified, uncomplicated; Z79.899 Other long term (current) drug therapy; Z90.710 Acquired absence of both cervix and uterus

== ENCOUNTER 2019-10-19 16:06 | Emergency (ER) | payer OTHER ==
[~2019-10-19] VITALS: Ht 160 cm; Wt 70.3 kg
== END 2019-10-19 19:25 | disposition home or self-care (01) ==
LOC: ED 16:06
DX: S89.92XA Unspecified injury of left lower leg, initial encounter (principal); K21.9 Gastro-esophageal reflux disease without esophagitis; J45.909 Unspecified asthma, uncomplicated; Z79.899 Other long term (current) drug therapy; Z90.49 Acquired absence of other specified parts of digestive tract; Z90.710 Acquired absence of both cervix and uterus; W22.8XXA Striking against or struck by other objects, initial encounter; Y93.89 Activity, other specified; Y92.89 Other specified places as the place of occurrence of the external cause; Y99.8 Other external cause status

== ENCOUNTER 2019-10-27 02:19 | Emergency (ER) | payer OTHER ==
[~2019-10-27] VITALS: Ht 160 cm; Wt 70.3 kg
[2019-10-27 03:00] LABS: BASO # 0.1 10*3/uL (0.0-0.1); EOS # 0.3 10*3/uL (0.0-0.4); EOS % 4.9 % (1.0-4.0); LYMPH # 2.2 10*3/uL (1.3-4.4); LYMPH % 31.3 % (27.0-41.0); MEAN CELL VOLUME 67.5 fl (81.0-99.0); MEAN CORPUSCULAR HGB 21.2 pg (27.0-31.0); MEAN CORPUSCULAR HGB CONC 31.4 g/dl (33.0-37.0); MONO # 0.5 10*3/uL (0.1-1.0); MONO % 7.8 % (3.0-9.0); NEUT # 3.8 10*3/uL (2.3-7.9); NEUT % 54.9 % (47.0-73.0); PLATELET COUNT AUTOMATED 285 10*3/uL (130-400); RED BLOOD COUNT 5.33 10*6/uL (4.10-5.10); RED CELL DISTRI WIDTH 14.8 % (0-14.5); WHITE BLOOD COUNT 6.9 10*3/uL (4.8-10.8)
[2019-10-27 03:14] LABS: ALBUMIN 3.7 gm/dl (3.1-4.5); ALKALINE PHOSPHATASE 44 U/L (45-117); BUN 15 mg/dl (7-24); CHLORIDE 108 mmol/L (98-107); CREATININE 0.71 mg/dL (0.55-1.02); LIPASE 83 U/L (73-393); POTASSIUM 3.9 mmol/L (3.5-5.1); SGOT/AST 18 IU/L (3-35); SGPT/ALT 27 U/L (12-78); SODIUM 142 mmol/L (136-145); TOTAL PROTEIN 6.9 gm/dL (6.4-8.2)
== END 2019-10-27 06:26 | disposition home or self-care (01) ==
LOC: ED 02:19
PROVIDERS: Emergency Medicine
DX: K29.70 Gastritis, unspecified, without bleeding (principal); K21.9 Gastro-esophageal reflux disease without esophagitis; J45.909 Unspecified asthma, uncomplicated; Z98.84 Bariatric surgery status; Z79.899 Other long term (current) drug therapy; Z87.891 Personal history of nicotine dependence; Z87.442 Personal history of urinary calculi; Z90.49 Acquired absence of other specified parts of digestive tract

== ENCOUNTER 2020-01-12 20:14 | Emergency (ER) | payer OTHER ==
[~2020-01-12] VITALS: Ht 160 cm; Wt 68.0 kg
[2020-01-12] MEDS ORDERED: Motrin,Rufen800 MG PO (22:37)
[2020-01-12] MEDS ORDERED: CYCLOBENZAPRINE5 M3 PO (22:37)
== END 2020-01-12 22:45 | disposition home or self-care (01) ==
LOC: ED 20:14
DX: S39.012A Strain of muscle, fascia and tendon of lower back, initial encounter (principal); G43.019 Migraine without aura, intractable, without status migrainosus; J45.909 Unspecified asthma, uncomplicated; K21.9 Gastro-esophageal reflux disease without esophagitis; Z79.899 Other long term (current) drug therapy; Z90.710 Acquired absence of both cervix and uterus; X58.XXXA Exposure to other specified factors, initial encounter; Y93.89 Activity, other specified; Y92.89 Other specified places as the place of occurrence of the external cause; Y99.8 Other external cause status

== ENCOUNTER 2020-02-24 18:42 | Emergency (ER) | payer OTHER ==
[~2020-02-24] VITALS: Wt 68.0 kg
[~2020-02-24 18:42] MED LIST changes: +CYCLOBENZAPRINE5 M3 PO
[2020-02-24] MEDS ORDERED: PREDNISONE20 M1 PO (19:26)
[2020-02-24] MEDS ORDERED: ZITHROMAX250 MG PO (19:26)
== END 2020-02-24 19:43 | disposition home or self-care (01) ==
LOC: ED 18:42
DX: J40 Bronchitis, not specified as acute or chronic (principal); Z79.899 Other long term (current) drug therapy; Z79.2 Long term (current) use of antibiotics

== ENCOUNTER 2020-05-12 07:13 | Emergency (ER) | payer OTHER ==
[~2020-05-12] VITALS: Ht 160 cm; Wt 68.0 kg
[~2020-05-12 07:13] MED LIST changes: +PREDNISONE20 M1 PO
== END 2020-05-12 08:19 | disposition home or self-care (01) ==
LOC: ED 07:13
DX: T21.11XA Burn of first degree of chest wall, initial encounter (principal); Z87.891 Personal history of nicotine dependence; Z79.899 Other long term (current) drug therapy; X10.1XXA Contact with hot food, initial encounter; Y93.89 Activity, other specified; Y92.89 Other specified places as the place of occurrence of the external cause; Y99.8 Other external cause status

== ENCOUNTER → 2020-05-19 | Outpatient (CLI) | payer OTHER | END | disposition home or self-care (01) | LOC: RAD 15:06 | PROVIDERS: ATTEND Internal Medicine | DX: M54.2 Cervicalgia (principal) ==

== ENCOUNTER 2020-10-15 10:04 | Emergency (ER) | payer OTHER ==
[~2020-10-15] VITALS: Wt 65.8 kg
[2020-10-15 10:25] LABS: BILIRUBIN Negative (Negative); BLOOD Negative (Negative); CLARITY Clear (Clear); COLOR Yellow (Yellow); GLUCOSE Negative (Negative); KETONE Negative (Negative); LEUKO ESTERASE Negative (Negative); NITRITE Negative (Negative); PH 7.5 (4.5-8.0); SPECIFIC GRAVITY <= 1.005 (1.001-1.030); UROBILINOGEN 0.2 E.U./dl (0.0-1.0)
[2020-10-15 10:34] LABS: BACTERIA 1+
[2020-10-15 11:28] LABS: BASO # 0.1 10*3/uL (0.0-0.1); BASO % 1.3 % (0.0-1.0); EOS # 0.9 10*3/uL (0.0-0.4); EOS % 11.8 % (1.0-4.0); HEMATOCRIT 39.1 % (37.0-47.0); LYMPH # 2.2 10*3/uL (1.3-4.4); LYMPH % 28.7 % (27.0-41.0); MEAN CELL VOLUME 67.1 fl (81.0-99.0); MEAN CORPUSCULAR HGB 21.1 pg (27.0-31.0); MEAN CORPUSCULAR HGB CONC 31.5 g/dl (33.0-37.0); MEAN PLATELET VOLUME 10.3 fl (9.6-12.3); MONO # 0.5 10*3/uL (0.1-1.0); MONO % 6.4 % (3.0-9.0); NEUT # 3.9 10*3/uL (2.3-7.9); NEUT % 51.7 % (47.0-73.0); PLATELET COUNT AUTOMATED 310 10*3/uL (130-400); RED BLOOD COUNT 5.83 10*6/uL (4.10-5.10); RED CELL DISTRI WIDTH 15.1 % (0-14.5); WHITE BLOOD COUNT 7.6 10*3/uL (4.8-10.8)
[2020-10-15 11:44] LABS: ALBUMIN 3.8 gm/dl (3.1-4.5); ALKALINE PHOSPHATASE 53 U/L (45-117); BUN 11 mg/dl (7-24); CHLORIDE 107 mmol/L (98-107); CREATININE 0.76 mg/dL (0.55-1.02); LIPASE 80 U/L (73-393); POTASSIUM 4.7 mmol/L (3.5-5.1); SGOT/AST 9 IU/L (3-35); SGPT/ALT 18 U/L (12-78); SODIUM 139 mmol/L (136-145)
== END 2020-10-15 14:07 | disposition home or self-care (01) ==
LOC: ED 10:04
PROVIDERS: Emergency Medicine; Physician Assistant
DX: R10.31 Right lower quadrant pain (principal); R11.2 Nausea with vomiting, unspecified; Z87.891 Personal history of nicotine dependence; Z98.890 Other specified postprocedural states; Z90.710 Acquired absence of both cervix and uterus; Z79.899 Other long term (current) drug therapy

== ENCOUNTER → 2020-10-22 | Outpatient (CLI) | payer OTHER | END | disposition home or self-care (01) | LOC: MAMMO 07:10 | PROVIDERS: ATTEND Internal Medicine | DX: Z12.31 Encounter for screening mammogram for malignant neoplasm of breast (principal) ==

== ENCOUNTER → 2020-10-28 | Outpatient (CLI) | payer OTHER | LOC: US 00:45 | PROVIDERS: ATTEND Internal Medicine | DX: N83.292 Other ovarian cyst, left side (principal) ==

== ENCOUNTER 2021-01-30 14:09 | Emergency (ER) | payer OTHER ==
[~2021-01-30] VITALS: Ht 160 cm; Wt 65.8 kg
[2021-01-30 14:59] LABS: BASO # 0.1 10*3/uL (0.0-0.1); BASO % 0.9 % (0.0-1.0); EOS # 0.4 10*3/uL (0.0-0.4); EOS % 3.8 % (1.0-4.0); HEMATOCRIT 38.5 % (37.0-47.0); LYMPH # 2.1 10*3/uL (1.3-4.4); LYMPH % 22.4 % (27.0-41.0); MEAN CELL VOLUME 67.1 fl (81.0-99.0); MEAN CORPUSCULAR HGB 21.3 pg (27.0-31.0); MEAN CORPUSCULAR HGB CONC 31.7 g/dl (33.0-37.0); MEAN PLATELET VOLUME 9.9 fl (9.6-12.3); MONO # 0.6 10*3/uL (0.1-1.0); MONO % 6.3 % (3.0-9.0); NEUT # 6.2 10*3/uL (2.3-7.9); NEUT % 66.4 % (47.0-73.0); PLATELET COUNT AUTOMATED 306 10*3/uL (130-400); RED BLOOD COUNT 5.74 10*6/uL (4.10-5.10); RED CELL DISTRI WIDTH 14.8 % (0-14.5); WHITE BLOOD COUNT 9.3 10*3/uL (4.8-10.8)
[2021-01-30 15:19] LABS: ALBUMIN 3.4 gm/dl (3.1-4.5); ALKALINE PHOSPHATASE 54 U/L (45-117); BETA-HCG, QUANT < 1.0 mIU/mL (1-3); BUN 9 mg/dl (7-24); CHLORIDE 108 mmol/L (98-107); CREATININE 0.56 mg/dL (0.55-1.02); LIPASE 74 U/L (73-393); SGOT/AST 6 IU/L (3-35); SGPT/ALT 17 U/L (12-78); SODIUM 138 mmol/L (136-145); TOTAL PROTEIN 6.6 gm/dL (6.4-8.2)
[2021-01-30 15:20] LABS: BILIRUBIN Negative (Negative); BLOOD Negative (Negative); CLARITY Clear (Clear); COLOR Yellow (Yellow); GLUCOSE Negative (Negative); KETONE Negative (Negative); LEUKO ESTERASE 1+ (Negative); NITRITE Negative (Negative); PH 7.5 (4.5-8.0)
[2021-01-30 15:48] LABS: RBC 0-2 rbc/hpf (0-2)
[2021-01-30 15:49] LABS: BACTERIA 2+
[2021-01-30] MEDS ORDERED: CIPRO500 MG PO (17:08)
== END 2021-01-30 17:10 | disposition home or self-care (01) ==
LOC: ED 14:09
PROVIDERS: Emergency Medicine
DX: N39.0 Urinary tract infection, site not specified (principal); Z79.899 Other long term (current) drug therapy; Z87.891 Personal history of nicotine dependence

== ENCOUNTER 2021-02-24 07:58 | Emergency (ER) | payer OTHER ==
[~2021-02-24] VITALS: Ht 160 cm; Wt 63.5 kg
[2021-02-24 08:54] LABS: BASO # 0.1 10*3/uL (0.0-0.1); BASO % 0.8 % (0.0-1.0); EOS # 0.4 10*3/uL (0.0-0.4); EOS % 5.9 % (1.0-4.0); LYMPH # 2.3 10*3/uL (1.3-4.4); LYMPH % 32.7 % (27.0-41.0); MEAN CORPUSCULAR HGB 20.9 pg (27.0-31.0); MEAN CORPUSCULAR HGB CONC 30.8 g/dl (33.0-37.0); MONO # 0.5 10*3/uL (0.1-1.0); MONO % 6.3 % (3.0-9.0); NEUT # 3.8 10*3/uL (2.3-7.9); PLATELET COUNT AUTOMATED 323 10*3/uL (130-400); RED BLOOD COUNT 5.59 10*6/uL (4.10-5.10); RED CELL DISTRI WIDTH 14.7 % (0-14.5); WHITE BLOOD COUNT 7.1 10*3/uL (4.8-10.8)
[2021-02-24 09:13] LABS: ALBUMIN 3.5 gm/dl (3.1-4.5); ALKALINE PHOSPHATASE 48 U/L (45-117); BUN 10 mg/dl (7-24); CHLORIDE 110 mmol/L (98-107); CREATININE 0.68 mg/dL (0.55-1.02); POTASSIUM 4.6 mmol/L (3.5-5.1); SGOT/AST 8 IU/L (3-35); SGPT/ALT 18 U/L (12-78); SODIUM 143 mmol/L (136-145); TOTAL PROTEIN 6.8 gm/dL (6.4-8.2)
[2021-02-24] MEDS ORDERED: PREDNISONE50 MG PO (10:35)
[2021-02-24] MEDS ORDERED: AVPAK AZITHROM250 MG PO (10:35)
== END 2021-02-24 10:46 | disposition home or self-care (01) ==
LOC: ED 07:58
PROVIDERS: Student in an Organized Health Care Education/Training Program
DX: J40 Bronchitis, not specified as acute or chronic (principal); Z20.822 Contact with and (suspected) exposure to COVID-19; Z79.899 Other long term (current) drug therapy; Z87.891 Personal history of nicotine dependence

== ENCOUNTER 2021-07-29 10:43 | Emergency (ER) | payer OTHER ==
[~2021-07-29] VITALS: Ht 160 cm; Wt 61.2 kg
[~2021-07-29 10:43] MED LIST changes: +AVPAK AZITHROM250 MG PO; +PREDNISONE50 MG PO
[2021-07-29] MEDS ORDERED: METHOCARBAMOL500 M1 PO (13:53)
[2021-07-29] MEDS ORDERED: IBUPROFEN600 MG PO (13:53)
== END 2021-07-29 13:51 | disposition home or self-care (01) ==
LOC: ED 10:43
DX: S01.81XA Laceration without foreign body of other part of head, initial encounter (principal); S13.9XXA Sprain of joints and ligaments of unspecified parts of neck, initial encounter; M54.2 Cervicalgia; Z79.899 Other long term (current) drug therapy; Z98.890 Other specified postprocedural states; Z90.49 Acquired absence of other specified parts of digestive tract; Z98.84 Bariatric surgery status; Z87.891 Personal history of nicotine dependence; W01.198A Fall on same level from slipping, tripping and stumbling with subsequent striking against other object, initial encounter; Y93.89 Activity, other specified; Y92.89 Other specified places as the place of occurrence of the external cause; Y99.8 Other external cause status

== ENCOUNTER 2021-08-26 20:36 | Emergency (ER) | payer OTHER ==
[~2021-08-26 20:36] MED LIST changes: +IBUPROFEN600 MG PO; +METHOCARBAMOL500 M1 PO
[2021-08-27] MEDS ORDERED: SEPTDS PO (08:03)
== END 2021-08-26 21:36 | disposition left against medical advice (07) ==
LOC: ED 20:36
DX: Z53.21 Procedure and treatment not carried out due to patient leaving prior to being seen by health care provider (principal)

== ENCOUNTER 2021-08-27 07:26 | Emergency (ER) | payer OTHER ==
[~2021-08-27] VITALS: Wt 61.2 kg
[2021-08-27] MEDS ORDERED: SEPTDS PO (08:03)
== END 2021-08-27 08:16 | disposition home or self-care (01) ==
LOC: ED 07:26
DX: L73.9 Follicular disorder, unspecified (principal); F17.200 Nicotine dependence, unspecified, uncomplicated; Z98.890 Other specified postprocedural states; Z90.710 Acquired absence of both cervix and uterus; Z90.49 Acquired absence of other specified parts of digestive tract; Z79.899 Other long term (current) drug therapy

== ENCOUNTER 2021-10-13 13:16 | Emergency (ER) | payer OTHER ==
[~2021-10-13] VITALS: Ht 160 cm; Wt 61.2 kg
== END 2021-10-13 17:11 | disposition home or self-care (01) ==
LOC: ED 13:16
DX: M25.561 Pain in right knee (principal); Z79.899 Other long term (current) drug therapy; Z98.890 Other specified postprocedural states; Z90.49 Acquired absence of other specified parts of digestive tract; Z87.891 Personal history of nicotine dependence

== ENCOUNTER 2022-02-11 09:22 | Emergency (ER) | payer OTHER ==
[~2022-02-11] VITALS: Ht 160 cm; Wt 59.0 kg
[2022-02-11 09:58] LABS: BASO # 0.1 10*3/uL (0.0-0.1); BASO % 1.5 % (0.0-1.0); EOS # 0.7 10*3/uL (0.0-0.4); EOS % 9.5 % (1.0-4.0); HEMATOCRIT 39.2 % (37.0-47.0); LYMPH # 2.2 10*3/uL (1.3-4.4); LYMPH % 29.9 % (27.0-41.0); MEAN CELL VOLUME 67.6 fl (81.0-99.0); MEAN CORPUSCULAR HGB 21.4 pg (27.0-31.0); MEAN CORPUSCULAR HGB CONC 31.6 g/dl (33.0-37.0); MEAN PLATELET VOLUME 9.9 fl (9.6-12.3); MONO # 0.4 10*3/uL (0.1-1.0); MONO % 5.8 % (3.0-9.0); NEUT # 3.9 10*3/uL (2.3-7.9); NEUT % 53.2 % (47.0-73.0); PLATELET COUNT AUTOMATED 264 10*3/uL (130-400); RED CELL DISTRI WIDTH 14.6 % (0-14.5); WHITE BLOOD COUNT 7.3 10*3/uL (4.8-10.8)
[2022-02-11 10:14] LABS: ALKALINE PHOSPHATASE 53 U/L (45-117); BUN 14 mg/dl (7-24); CHLORIDE 111 mmol/L (98-107); CREATININE 0.66 mg/dL (0.55-1.02); LIPASE 130 U/L (73-393); SGOT/AST 6 IU/L (3-35); SGPT/ALT 22 U/L (12-78); SODIUM 142 mmol/L (136-145); TOTAL PROTEIN 6.8 gm/dL (6.4-8.2)
[2022-02-11 10:37] LABS: BILIRUBIN Negative (Negative); BLOOD Negative (Negative); CLARITY Clear (Clear); COLOR Yellow (Yellow); GLUCOSE Negative (Negative); KETONE Negative (Negative); LEUKO ESTERASE Negative (Negative); NITRITE Negative (Negative)
[2022-02-11 10:53] LABS: RBC 0-2 rbc/hpf (0-2)
[2022-02-11 10:54] LABS: BACTERIA TRACE
== END 2022-02-11 12:27 | disposition home or self-care (01) ==
LOC: ED 09:22
PROVIDERS: Family Medicine
DX: S39.011A Strain of muscle, fascia and tendon of abdomen, initial encounter (principal); R19.7 Diarrhea, unspecified; Z79.899 Other long term (current) drug therapy; Z98.890 Other specified postprocedural states; Z90.49 Acquired absence of other specified parts of digestive tract; Z98.84 Bariatric surgery status; Z87.891 Personal history of nicotine dependence; X50.0XXA Overexertion from strenuous movement or load, initial encounter; Y93.89 Activity, other specified; Y92.69 Other specified industrial and construction area as the place of occurrence of the external cause; Y99.8 Other external cause status

== ENCOUNTER 2022-11-02 21:28 | Emergency (ER) | payer OTHER ==
[~2022-11-02] VITALS: Ht 160 cm; Wt 56.7 kg
[2022-11-02] MEDS ORDERED: PREVACID30 M2 PO (22:43)
[2022-11-02] MEDS ORDERED: ACYCLOVIR400 MG PO (23:44)
== END 2022-11-03 00:03 | disposition home or self-care (01) ==
LOC: ED 21:28
DX: L98.9 Disorder of the skin and subcutaneous tissue, unspecified (principal); B00.1 Herpesviral vesicular dermatitis; J45.909 Unspecified asthma, uncomplicated; K21.9 Gastro-esophageal reflux disease without esophagitis; R73.9 Hyperglycemia, unspecified; D50.9 Iron deficiency anemia, unspecified; Z98.890 Other specified postprocedural states; Z90.49 Acquired absence of other specified parts of digestive tract; Z90.710 Acquired absence of both cervix and uterus; Z87.891 Personal history of nicotine dependence; Z87.442 Personal history of urinary calculi

== ENCOUNTER 2022-11-30 13:09 | Emergency (ER) | payer OTHER ==
[~2022-11-30] VITALS: Ht 160 cm; Wt 56.7 kg
[~2022-11-30 13:09] MED LIST changes: +ACYCLOVIR400 MG PO; +PREVACID30 M2 PO
[2022-11-30] MEDS ORDERED: PREDNISONE50 MG PO (14:17)
[2022-11-30] MEDS ORDERED: ZITHROMAX250 MG PO (14:17)
[2022-11-30] MEDS ORDERED: ONDANSETRON4 MG SL (14:17)
== END 2022-11-30 14:31 | disposition home or self-care (01) ==
LOC: ED 13:09
DX: J44.1 Chronic obstructive pulmonary disease with (acute) exacerbation (principal); J30.2 Other seasonal allergic rhinitis; K21.9 Gastro-esophageal reflux disease without esophagitis; Z87.442 Personal history of urinary calculi; Z90.49 Acquired absence of other specified parts of digestive tract; Z98.890 Other specified postprocedural states; Z90.710 Acquired absence of both cervix and uterus; Z87.891 Personal history of nicotine dependence

== ENCOUNTER 2022-12-24 02:59 | Emergency (ER) | payer OTHER ==
[~2022-12-24] VITALS: Ht 160 cm; Wt 72.6 kg
[~2022-12-24 02:59] MED LIST changes: +ONDANSETRON4 MG SL
[2022-12-24 03:29] LABS: BASO # 0.1 10*3/uL (0.0-0.1); EOS # 0.4 10*3/uL (0.0-0.4); EOS % 4.7 % (1.0-4.0); HEMATOCRIT 38.4 % (37.0-47.0); LYMPH # 2.9 10*3/uL (1.3-4.4); LYMPH % 37.4 % (27.0-41.0); MEAN CELL VOLUME 66.6 fl (81.0-99.0); MEAN CORPUSCULAR HGB 21.3 pg (27.0-31.0); MEAN PLATELET VOLUME 9.5 fl (9.6-12.3); MONO # 0.5 10*3/uL (0.1-1.0); NEUT # 3.9 10*3/uL (2.3-7.9); NEUT % 50.6 % (47.0-73.0); PLATELET COUNT AUTOMATED 287 10*3/uL (130-400); RED BLOOD COUNT 5.77 10*6/uL (4.10-5.10); RED CELL DISTRI WIDTH 15.2 % (0-14.5); WHITE BLOOD COUNT 7.6 10*3/uL (4.8-10.8)
[2022-12-24 03:51] LABS: ALKALINE PHOSPHATASE 59 U/L (46-116); BUN 9 mg/dl (9-23); CHLORIDE 109 mmol/L (98-107); ETHYL ALCOHOL 106.9 mg/dl (<3); POTASSIUM 3.3 mmol/L (3.4-5.1); SGPT/ALT 17 U/L (10-49); TOTAL PROTEIN 7.1 gm/dL (6.0-8.0)
[2022-12-24 03:54] LABS: BILIRUBIN Negative (Negative); BLOOD Negative (Negative); CLARITY Clear (Clear); COLOR Yellow (Yellow); GLUCOSE Negative (Negative); KETONE Negative (Negative); LEUKO ESTERASE Trace (Negative); NITRITE Negative (Negative); PH 6.5 (4.5-8.0); SPECIFIC GRAVITY <= 1.005 (1.001-1.030); UROBILINOGEN 0.2 E.U./dl (0.0-1.0)
[2022-12-24 04:01] LABS: URINE AMPHETAMINES Negative (1000ng/ml); URINE BARBITURATES Negative (200ng/ml); URINE BENZODIAZEPINES Negative (200ng/ml); URINE CANNABINOIDS (THC) Negative (50ng/ml); URINE COCAINE Negative (300ng/ml); URINE METHADONE Negative (300ng/ml); URINE OPIATES Negative (300ng/ml); URINE PHENCYCLIDINE Negative (25ng/ml)
[2022-12-24 04:16] LABS: BACTERIA 1+; RBC 0-2 rbc/hpf (0-2)
== END 2022-12-24 09:45 | disposition home or self-care (01) ==
LOC: ED 02:59
PROVIDERS: Internal Medicine
DX: F43.21 Adjustment disorder with depressed mood (principal); F10.24 Alcohol dependence with alcohol-induced mood disorder; Z79.2 Long term (current) use of antibiotics; Z79.899 Other long term (current) drug therapy; Z98.890 Other specified postprocedural states; Z90.49 Acquired absence of other specified parts of digestive tract; Z98.84 Bariatric surgery status; Z87.891 Personal history of nicotine dependence; Y90.5 Blood alcohol level of 100-119 mg/100 ml

== ENCOUNTER 2023-03-23 21:06 | Emergency (ER) | payer OTHER ==
[~2023-03-23] VITALS: Ht 160 cm; Wt 56.7 kg
[2023-03-23] MEDS ORDERED: PEPCID40 MG PO (21:18)
[2023-03-23] MEDS ORDERED: ALBUTEROL2.5 MG/0.5 INH (21:19)
[2023-03-23] MEDS ORDERED: PROVENTIL HFA6.7 GM INH (21:20)
== END 2023-03-23 23:07 | disposition home or self-care (01) ==
LOC: ED 21:06
DX: S20.224A Contusion of middle back wall of thorax, initial encounter (principal); S49.91XA Unspecified injury of right shoulder and upper arm, initial encounter; J44.9 Chronic obstructive pulmonary disease, unspecified; K21.9 Gastro-esophageal reflux disease without esophagitis; R73.9 Hyperglycemia, unspecified; Z98.890 Other specified postprocedural states; Z90.49 Acquired absence of other specified parts of digestive tract; Z90.710 Acquired absence of both cervix and uterus; Z87.891 Personal history of nicotine dependence; W10.9XXA Fall (on) (from) unspecified stairs and steps, initial encounter; Y93.89 Activity, other specified; Y92.009 Unspecified place in unspecified non-institutional (private) residence as the place of occurrence of the external cause; Y99.8 Other external cause status

== ENCOUNTER 2023-04-04 08:28 | Emergency (ER) | payer OTHER ==
[~2023-04-04] VITALS: Ht 160 cm; Wt 56.7 kg
[~2023-04-04 08:28] MED LIST changes: +ALBUTEROL2.5 MG/0.5 INH; +PEPCID40 MG PO; +PROVENTIL HFA6.7 GM INH
[2023-04-04] MEDS ORDERED: MELOXICAM15 MG PO (09:13)
[2023-04-04] MEDS ORDERED: LAMOTRIGINE100 MG PO (09:14)
[2023-04-04] MEDS ORDERED: BREYNA 80-4.510.3 GM INH (09:15)
== END 2023-04-04 09:35 | disposition home or self-care (01) ==
LOC: ED 08:28
DX: S61.210A Laceration without foreign body of right index finger without damage to nail, initial encounter (principal); K21.9 Gastro-esophageal reflux disease without esophagitis; J45.909 Unspecified asthma, uncomplicated; Z98.890 Other specified postprocedural states; Z90.49 Acquired absence of other specified parts of digestive tract; Z90.710 Acquired absence of both cervix and uterus; Z87.891 Personal history of nicotine dependence; W26.8XXA Contact with other sharp object(s), not elsewhere classified, initial encounter; Y93.89 Activity, other specified; Y92.89 Other specified places as the place of occurrence of the external cause; Y99.8 Other external cause status

== ENCOUNTER 2023-04-23 19:33 | Emergency (ER) | payer OTHER ==
[~2023-04-23] VITALS: Ht 160 cm; Wt 56.7 kg
[~2023-04-23 19:33] MED LIST changes: +BREYNA 80-4.510.3 GM INH; +LAMOTRIGINE100 MG PO; +MELOXICAM15 MG PO
[2023-04-23 20:07] LABS: BASO # 0.1 10*3/uL (0.0-0.1); BASO % 0.8 % (0.0-1.0); EOS # 0.2 10*3/uL (0.0-0.4); EOS % 2.6 % (1.0-4.0); HEMATOCRIT 34.5 % (37.0-47.0); LYMPH % 38.9 % (27.0-41.0); MEAN CORPUSCULAR HGB 21.8 pg (27.0-31.0); MEAN PLATELET VOLUME 9.5 fl (9.6-12.3); MONO # 0.5 10*3/uL (0.1-1.0); MONO % 6.2 % (3.0-9.0); NEUT % 51.4 % (47.0-73.0); PLATELET COUNT AUTOMATED 251 10*3/uL (130-400); RED BLOOD COUNT 5.23 10*6/uL (4.10-5.10); RED CELL DISTRI WIDTH 14.8 % (0-14.5); WHITE BLOOD COUNT 7.7 10*3/uL (4.8-10.8)
[2023-04-23 20:07] LABS: BILIRUBIN Negative (Negative); BLOOD Negative (Negative); CLARITY Clear (Clear); COLOR Yellow (Yellow); GLUCOSE Negative (Negative); KETONE Negative (Negative); LEUKO ESTERASE 1+ (Negative); NITRITE Negative (Negative); SPECIFIC GRAVITY <= 1.005 (1.001-1.030)
[2023-04-23 20:26] LABS: BACTERIA 1+
[2023-04-23 20:27] LABS: ALKALINE PHOSPHATASE 54 U/L (46-116); BUN 13 mg/dl (9-23); CHLORIDE 109 mmol/L (98-107); LIPASE 33 U/L (12-53); POTASSIUM 3.5 mmol/L (3.4-5.1); SGPT/ALT 14 U/L (5-49); TOTAL PROTEIN 6.4 gm/dL (6.0-8.0)
[2023-04-23] MEDS ORDERED: CIPRO500 MG PO (22:34)
== END 2023-04-23 22:52 | disposition home or self-care (01) ==
LOC: ED 19:33
PROVIDERS: Nurse Practitioner Family
DX: N39.0 Urinary tract infection, site not specified (principal); J44.9 Chronic obstructive pulmonary disease, unspecified; K21.9 Gastro-esophageal reflux disease without esophagitis; G43.909 Migraine, unspecified, not intractable, without status migrainosus; Z79.899 Other long term (current) drug therapy; Z87.42 Personal history of other diseases of the female genital tract; Z98.890 Other specified postprocedural states; Z90.49 Acquired absence of other specified parts of digestive tract; Z87.891 Personal history of nicotine dependence

== ENCOUNTER 2023-05-08 21:11 | Emergency (ER) | payer OTHER ==
[~2023-05-08] VITALS: Ht 160 cm; Wt 56.7 kg
[2023-05-08 21:52] LABS: BASO # 0.1 10*3/uL (0.0-0.1); BASO % 0.5 % (0.0-1.0); EOS # 0.1 10*3/uL (0.0-0.4); EOS % 0.8 % (1.0-4.0); HEMATOCRIT 38.4 % (37.0-47.0); LYMPH # 1.7 10*3/uL (1.3-4.4); LYMPH % 18.7 % (27.0-41.0); MEAN CELL VOLUME 66.7 fl (81.0-99.0); MEAN CORPUSCULAR HGB 20.7 pg (27.0-31.0); MEAN PLATELET VOLUME 9.8 fl (9.6-12.3); MONO # 0.6 10*3/uL (0.1-1.0); MONO % 6.8 % (3.0-9.0); NEUT # 6.7 10*3/uL (2.3-7.9); NEUT % 72.9 % (47.0-73.0); PLATELET COUNT AUTOMATED 298 10*3/uL (130-400); RED BLOOD COUNT 5.76 10*6/uL (4.10-5.10); RED CELL DISTRI WIDTH 14.6 % (0-14.5); WHITE BLOOD COUNT 9.2 10*3/uL (4.8-10.8)
[2023-05-08 22:06] LABS: ACT PARTIAL THROMBO TIME 28.3 SECONDS (20.0-32.1)
[2023-05-08 22:17] LABS: ALKALINE PHOSPHATASE 58 U/L (46-116); BUN 12 mg/dl (9-23); CHLORIDE 106 mmol/L (98-107); LIPASE 31 U/L (12-53); POTASSIUM 3.8 mmol/L (3.4-5.1); SGPT/ALT 12 U/L (5-49); TOTAL PROTEIN 6.7 gm/dL (6.0-8.0)
[2023-05-08] MEDS ORDERED: ONDANSETRON4 MG SL ×2 (23:59)
== END 2023-05-09 00:58 | disposition home or self-care (01) ==
LOC: ED 21:11
PROVIDERS: Internal Medicine
DX: K52.9 Noninfective gastroenteritis and colitis, unspecified (principal); R11.2 Nausea with vomiting, unspecified; K21.9 Gastro-esophageal reflux disease without esophagitis; J45.909 Unspecified asthma, uncomplicated; Z87.442 Personal history of urinary calculi; Z98.890 Other specified postprocedural states; Z90.49 Acquired absence of other specified parts of digestive tract; Z90.710 Acquired absence of both cervix and uterus; Z87.891 Personal history of nicotine dependence; R10.2 Pelvic and perineal pain

== ENCOUNTER 2023-05-12 09:38 | Emergency (ER) | payer OTHER ==
[~2023-05-12] VITALS: Ht 160 cm; Wt 54.4 kg
[2023-05-12 10:54] LABS: BASO # 0.1 10*3/uL (0.0-0.1); BASO % 0.6 % (0.0-1.0); EOS # 0.1 10*3/uL (0.0-0.4); EOS % 1.7 % (1.0-4.0); HEMATOCRIT 37.2 % (37.0-47.0); LYMPH # 1.4 10*3/uL (1.3-4.4); LYMPH % 17.7 % (27.0-41.0); MEAN CELL VOLUME 67.9 fl (81.0-99.0); MEAN CORPUSCULAR HGB 20.6 pg (27.0-31.0); MEAN CORPUSCULAR HGB CONC 30.4 g/dl (33.0-37.0); MEAN PLATELET VOLUME 9.9 fl (9.6-12.3); MONO # 0.5 10*3/uL (0.1-1.0); MONO % 6.7 % (3.0-9.0); NEUT # 5.8 10*3/uL (2.3-7.9); NEUT % 72.9 % (47.0-73.0); PLATELET COUNT AUTOMATED 285 10*3/uL (130-400); RED BLOOD COUNT 5.48 10*6/uL (4.10-5.10); RED CELL DISTRI WIDTH 14.6 % (0-14.5)
[2023-05-12 11:15] LABS: ALKALINE PHOSPHATASE 57 U/L (46-116); BUN 10 mg/dl (9-23); CHLORIDE 108 mmol/L (98-107); LIPASE 27 U/L (12-53); POTASSIUM 4.2 mmol/L (3.4-5.1); SGPT/ALT 8 U/L (5-49); TOTAL PROTEIN 6.1 gm/dL (6.0-8.0)
[2023-05-12] MEDS ORDERED: SENNA PLUS 8.61 EACH PO (13:38)
[2023-05-12] MEDS ORDERED: FAMOTIDINE40 MG PO (13:38)
[2023-05-12] MEDS ORDERED: MIRALAX POWDER17 G1 PO (13:39)
[2023-05-12 14:18] LABS: BILIRUBIN Negative (Negative); BLOOD Negative (Negative); CLARITY Clear (Clear); COLOR Yellow (Yellow); GLUCOSE Negative (Negative); KETONE Trace (Negative); LEUKO ESTERASE Negative (Negative); NITRITE Negative (Negative); PH 5.5 (4.5-8.0); SPECIFIC GRAVITY >= 1.030 (1.001-1.030)
[2023-05-12 15:09] LABS: BACTERIA TRACE
[2023-05-13] MEDS ORDERED: CITROMA296 ML PO (22:39)
[2023-05-13] MEDS ORDERED: PHENERGAN25 M3 PO (22:39)
== END 2023-05-12 13:43 | disposition home or self-care (01) ==
LOC: ED 09:38
PROVIDERS: Family Medicine
DX: K59.00 Constipation, unspecified (principal); K21.9 Gastro-esophageal reflux disease without esophagitis; J45.909 Unspecified asthma, uncomplicated; Z87.442 Personal history of urinary calculi; Z98.890 Other specified postprocedural states; Z90.49 Acquired absence of other specified parts of digestive tract; Z90.710 Acquired absence of both cervix and uterus; F17.210 Nicotine dependence, cigarettes, uncomplicated

== ENCOUNTER 2023-05-13 17:40 | Emergency (ER) | payer OTHER ==
[~2023-05-13] VITALS: Ht 160 cm; Wt 54.4 kg
[~2023-05-13 17:40] MED LIST changes: +FAMOTIDINE40 MG PO; +SENNA PLUS 8.61 EACH PO
[2023-05-13 19:00] LABS: BASO # 0.1 10*3/uL (0.0-0.1); BASO % 0.7 % (0.0-1.0); EOS # 0.1 10*3/uL (0.0-0.4); EOS % 1.4 % (1.0-4.0); HEMATOCRIT 37.3 % (37.0-47.0); LYMPH # 1.7 10*3/uL (1.3-4.4); LYMPH % 24.2 % (27.0-41.0); MEAN CELL VOLUME 67.7 fl (81.0-99.0); MEAN CORPUSCULAR HGB 20.7 pg (27.0-31.0); MEAN CORPUSCULAR HGB CONC 30.6 g/dl (33.0-37.0); MEAN PLATELET VOLUME 9.7 fl (9.6-12.3); MONO # 0.4 10*3/uL (0.1-1.0); MONO % 5.6 % (3.0-9.0); NEUT # 4.9 10*3/uL (2.3-7.9); NEUT % 67.8 % (47.0-73.0); PLATELET COUNT AUTOMATED 292 10*3/uL (130-400); RED BLOOD COUNT 5.51 10*6/uL (4.10-5.10); RED CELL DISTRI WIDTH 14.5 % (0-14.5); WHITE BLOOD COUNT 7.2 10*3/uL (4.8-10.8)
[2023-05-13 19:21] LABS: ALKALINE PHOSPHATASE 60 U/L (46-116); BUN 9 mg/dl (9-23); CHLORIDE 104 mmol/L (98-107); LIPASE 35 U/L (12-53); SGPT/ALT 9 U/L (5-49); TOTAL PROTEIN 6.6 gm/dL (6.0-8.0)
[2023-05-13 21:57] LABS: BILIRUBIN Negative (Negative); BLOOD Negative (Negative); CLARITY Cloudy (Clear); COLOR Yellow (Yellow); GLUCOSE Negative (Negative); KETONE Trace (Negative); LEUKO ESTERASE Negative (Negative); NITRITE Negative (Negative)
[2023-05-13 22:07] LABS: BACTERIA TRACE; RBC 0-2 rbc/hpf (0-2); WBC 0-2 wbc/hpf (0-5)
[2023-05-13] MEDS ORDERED: PHENERGAN25 M3 PO (22:39)
[2023-05-13] MEDS ORDERED: CITROMA296 ML PO (22:39)
== END 2023-05-13 22:56 | disposition home or self-care (01) ==
LOC: ED 17:40
PROVIDERS: Nurse Practitioner Family
DX: K59.00 Constipation, unspecified (principal); R11.2 Nausea with vomiting, unspecified; K21.9 Gastro-esophageal reflux disease without esophagitis; J45.909 Unspecified asthma, uncomplicated; Z87.442 Personal history of urinary calculi; Z98.890 Other specified postprocedural states; Z90.49 Acquired absence of other specified parts of digestive tract; Z87.891 Personal history of nicotine dependence; Z90.710 Acquired absence of both cervix and uterus

== ENCOUNTER 2023-07-16 16:44 | Emergency (ER) | payer OTHER ==
[~2023-07-16] VITALS: Ht 160 cm; Wt 49.9 kg
[~2023-07-16 16:44] MED LIST changes: +CITROMA296 ML PO; +PHENERGAN25 M3 PO
[2023-07-16] MEDS ORDERED: SODIUM CHLORIDE 0.9% 1,000 ML IV ONE (17:10)
[2023-07-16] MEDS ORDERED: Ondansetron Hydrochloride 4 MG/2 ML VIAL IV ONE (17:10)
[2023-07-16 17:34] LABS: BASO # 0.1 10*3/uL (0.0-0.1); BASO % 0.6 % (0.0-1.0); EOS % 0.2 % (1.0-4.0); LYMPH # 1.4 10*3/uL (1.3-4.4); LYMPH % 15.2 % (27.0-41.0); MEAN CORPUSCULAR HGB 20.5 pg (27.0-31.0); MEAN CORPUSCULAR HGB CONC 31.1 g/dl (33.0-37.0); MEAN PLATELET VOLUME 10.1 fl (9.6-12.3); MONO # 0.5 10*3/uL (0.1-1.0); MONO % 5.5 % (3.0-9.0); NEUT # 6.9 10*3/uL (2.3-7.9); NEUT % 78.4 % (47.0-73.0); PLATELET COUNT AUTOMATED 289 10*3/uL (130-400); RED BLOOD COUNT 5.61 10*6/uL (4.10-5.10); RED CELL DISTRI WIDTH 14.8 % (0-14.5); WHITE BLOOD COUNT 8.9 10*3/uL (4.8-10.8)
[2023-07-16 17:43] LABS: ACT PARTIAL THROMBO TIME 27.8 SECONDS (20.0-32.1)
[2023-07-16 17:51] LABS: ALKALINE PHOSPHATASE 63 U/L (46-116); BUN 20 mg/dl (9-23); CHLORIDE 104 mmol/L (98-107); LIPASE 35 U/L (12-53); POTASSIUM 3.8 mmol/L (3.4-5.1); SGPT/ALT 8 U/L (5-49); TOTAL PROTEIN 7.2 gm/dL (6.0-8.0)
[2023-07-16 19:57] LABS: BILIRUBIN Negative (Negative); BLOOD Negative (Negative); CLARITY Clear (Clear); COLOR Yellow (Yellow); GLUCOSE Negative (Negative); KETONE 1+ (Negative); LEUKO ESTERASE Trace (Negative); NITRITE Negative (Negative); SPECIFIC GRAVITY 1.025 (1.001-1.030)
[2023-07-16 20:04] LABS: MUCOUS 1+
[2023-07-16] MEDS ORDERED: Lidocaine Hydrochloride 15 ML UDC PO STA (20:11)
[2023-07-16] MEDS ORDERED: Dicyclomine Hydrochloride 20 MG/10 ML OSYR PO STA (20:11)
[2023-07-16] MEDS ORDERED: [UNRECOGNIZED DRUG - OTHER] PO ONE (20:15)
[2023-07-16] MEDS ORDERED: ALUMINUM HYDROXIDE PO ONE (20:15)
[2023-07-16] MEDS ORDERED: ONDANSETRON4 MG SL (20:58)
== END 2023-07-16 21:34 | disposition home or self-care (01) ==
LOC: ED 16:44
PROVIDERS: Nurse Practitioner Family
DX: R11.2 Nausea with vomiting, unspecified (principal); K21.9 Gastro-esophageal reflux disease without esophagitis; R10.84 Generalized abdominal pain; J45.909 Unspecified asthma, uncomplicated; G43.909 Migraine, unspecified, not intractable, without status migrainosus; Z98.890 Other specified postprocedural states; Z90.49 Acquired absence of other specified parts of digestive tract; Z90.710 Acquired absence of both cervix and uterus; Z87.891 Personal history of nicotine dependence; Z87.442 Personal history of urinary calculi

== ENCOUNTER 2023-09-05 07:31 | Emergency (ER) | payer OTHER ==
[~2023-09-05] VITALS: Ht 160 cm; Wt 49.9 kg
[2023-09-05] MEDS ORDERED: Lidocaine Hydrochloride 15 ML UDC PO STA (07:42)
[2023-09-05] MEDS ORDERED: Dicyclomine Hydrochloride 20 MG/10 ML OSYR PO STA (07:42)
[2023-09-05] MEDS ORDERED: MG-AL HYDROXIDE/SIMETICONE 30 ML UDC PO STA (07:42)
[2023-09-05] MEDS ORDERED: Ondansetron Hydrochloride 4 MG/2 ML VIAL IV ONE (07:45)
[2023-09-05] MEDS ORDERED: SODIUM CHLORIDE 0.9% 1,000 ML IV ONE (07:45)
[2023-09-05] MEDS ORDERED: Pantoprazole Sodium 40 MG VIAL IV ONE (07:50)
[2023-09-05] MEDS ORDERED: diphenhydrAMINE hydrochloride 50 MG/ML VIAL IV ONE (07:50)
[2023-09-05] MEDS ORDERED: Metoclopramide Hydrochloride 10 MG/2 ML AMP IV ONE (07:50)
[2023-09-05 08:04] LABS: BASO # 0.1 10*3/uL (0.0-0.1); BASO % 0.7 % (0.0-1.0); EOS % 0.6 % (1.0-4.0); HEMATOCRIT 39.5 % (37.0-47.0); LYMPH # 1.3 10*3/uL (1.3-4.4); LYMPH % 18.4 % (27.0-41.0); MEAN CELL VOLUME 66.3 fl (81.0-99.0); MEAN CORPUSCULAR HGB 20.1 pg (27.0-31.0); MEAN CORPUSCULAR HGB CONC 30.4 g/dl (33.0-37.0); MEAN PLATELET VOLUME 9.7 fl (9.6-12.3); MONO # 0.7 10*3/uL (0.1-1.0); MONO % 10.3 % (3.0-9.0); NEUT % 69.9 % (47.0-73.0); PLATELET COUNT AUTOMATED 293 10*3/uL (130-400); RED BLOOD COUNT 5.96 10*6/uL (4.10-5.10); WHITE BLOOD COUNT 7.2 10*3/uL (4.8-10.8)
[2023-09-05 08:22] LABS: BILIRUBIN Negative (Negative); BLOOD Negative (Negative); CLARITY Cloudy (Clear); COLOR Yellow (Yellow); GLUCOSE Negative (Negative); KETONE Trace (Negative); LEUKO ESTERASE 2+ (Negative); NITRITE Negative (Negative); PH 6.5 (4.5-8.0)
[2023-09-05 08:27] LABS: ALKALINE PHOSPHATASE 61 U/L (46-116); BUN 13 mg/dl (9-23); CHLORIDE 102 mmol/L (98-107); LIPASE 37 U/L (12-53); TOTAL PROTEIN 6.7 gm/dL (6.0-8.0)
[2023-09-05 08:36] LABS: SGPT/ALT < 7 U/L (5-49)
[2023-09-05] MEDS ORDERED: REGLAN10 M1 PO (08:55)
== END 2023-09-05 09:01 | disposition home or self-care (01) ==
LOC: ED 07:31
PROVIDERS: Internal Medicine
DX: K21.9 Gastro-esophageal reflux disease without esophagitis (principal); R11.2 Nausea with vomiting, unspecified; Z79.899 Other long term (current) drug therapy; Z98.890 Other specified postprocedural states; Z98.84 Bariatric surgery status; Z90.49 Acquired absence of other specified parts of digestive tract; Z87.891 Personal history of nicotine dependence

== ENCOUNTER → 2023-11-30 | Outpatient (CLI) | payer OTHER ==
[~2023-11-30] MED LIST changes: +REGLAN10 M1 PO
[2023-11-30 09:30] LABS: BASO # 0.1 10*3/uL (0.0-0.1); BASO % 0.7 % (0.0-1.0); EOS # 0.1 10*3/uL (0.0-0.4); EOS % 1.5 % (1.0-4.0); HEMATOCRIT 35.5 % (37.0-47.0); LYMPH % 29.8 % (27.0-41.0); MEAN CELL VOLUME 67.7 fl (81.0-99.0); MEAN CORPUSCULAR HGB 20.8 pg (27.0-31.0); MEAN CORPUSCULAR HGB CONC 30.7 g/dl (33.0-37.0); MEAN PLATELET VOLUME 9.6 fl (9.6-12.3); MONO # 0.5 10*3/uL (0.1-1.0); MONO % 7.9 % (3.0-9.0); NEUT # 4.1 10*3/uL (2.3-7.9); NEUT % 59.8 % (47.0-73.0); PLATELET COUNT AUTOMATED 334 10*3/uL (130-400); RED BLOOD COUNT 5.24 10*6/uL (4.10-5.10); RED CELL DISTRI WIDTH 15.5 % (0-14.5); WHITE BLOOD COUNT 6.8 10*3/uL (4.8-10.8)
[2023-11-30 10:00] LABS: FREE T4 0.81 ng/dl (0.89-1.76); TOTAL PROTEIN 6.6 gm/dL (6.0-8.0)
[2023-12-01 04:06] LABS: THYROID PEROXIDASE (TPO) AB <9 IU/mL (0-34)
[2023-12-01 15:08] LABS: THYROGLOBULIN ANTIBODY <1.0 IU/mL (0.0-0.9)
[2023-12-02 07:07] LABS: THYROID STIM IMMUNOGLOBULIN <0.10 IU/L (0.00-0.55)
== END ==
LOC: LAB 08:35
PROVIDERS: ATTEND Internal Medicine
DX: R94.6 Abnormal results of thyroid function studies (principal); I95.9 Hypotension, unspecified

== ENCOUNTER → 2024-01-04 | Outpatient (CLI) | payer OTHER | END | disposition home or self-care (01) | LOC: MAMMO 07:30 | PROVIDERS: ATTEND Nurse Practitioner Family | DX: Z12.31 Encounter for screening mammogram for malignant neoplasm of breast (principal) ==

== ENCOUNTER 2024-02-26 04:44 | Emergency (ER) | payer OTHER ==
[~2024-02-26] VITALS: Ht 160 cm; Wt 54.4 kg
[2024-02-26] MEDS ORDERED: Dexamethasone Sodium Phospha 20 MG/5 ML VIAL IM ONE (05:05)
[2024-02-26] MEDS ORDERED: MEDROL DOSEPAK4 MG PO (06:24)
== END 2024-02-26 06:35 | disposition home or self-care (01) ==
LOC: ED 04:44
DX: M06.9 Rheumatoid arthritis, unspecified (principal); J45.909 Unspecified asthma, uncomplicated; K21.9 Gastro-esophageal reflux disease without esophagitis; Z87.442 Personal history of urinary calculi; Z88.6 Allergy status to analgesic agent; Z88.8 Allergy status to other drugs, medicaments and biological substances; Z98.890 Other specified postprocedural states; Z90.49 Acquired absence of other specified parts of digestive tract; Z90.710 Acquired absence of both cervix and uterus; Z87.891 Personal history of nicotine dependence

== ENCOUNTER → 2024-03-06 | Outpatient (CLI) | payer OTHER ==
[2024-03-06 07:44] LABS: BASO # 0.1 10*3/uL (0.0-0.1); BASO % 0.9 % (0.0-1.0); EOS # 0.2 10*3/uL (0.0-0.4); EOS % 2.2 % (1.0-4.0); HEMATOCRIT 37.4 % (37.0-47.0); LYMPH # 2.7 10*3/uL (1.3-4.4); LYMPH % 33.3 % (27.0-41.0); MEAN CELL VOLUME 65.8 fl (81.0-99.0); MEAN CORPUSCULAR HGB 20.1 pg (27.0-31.0); MEAN CORPUSCULAR HGB CONC 30.5 g/dl (33.0-37.0); MEAN PLATELET VOLUME 9.5 fl (9.6-12.3); MONO # 0.6 10*3/uL (0.1-1.0); MONO % 7.8 % (3.0-9.0); NEUT # 4.6 10*3/uL (2.3-7.9); NEUT % 55.6 % (47.0-73.0); PLATELET COUNT AUTOMATED 358 10*3/uL (130-400); RED BLOOD COUNT 5.68 10*6/uL (4.10-5.10); RED CELL DISTRI WIDTH 15.9 % (0-14.5); WHITE BLOOD COUNT 8.2 10*3/uL (4.8-10.8)
[2024-03-06 08:06] LABS: FREE T4 1.41 ng/dl (0.89-1.76); TOTAL PROTEIN 6.7 gm/dL (6.0-8.0)
[2024-03-07 04:07] LABS: THYROID PEROXIDASE (TPO) AB <9 IU/mL (0-34)
[2024-03-07 16:09] LABS: THYROGLOBULIN ANTIBODY <1.0 IU/mL (0.0-0.9)
== END | disposition home or self-care (01) ==
LOC: LAB 07:23
PROVIDERS: ATTEND Internal Medicine
DX: R94.6 Abnormal results of thyroid function studies (principal); I95.9 Hypotension, unspecified

== ENCOUNTER 2024-03-29 17:18 | Emergency (ER) | payer OTHER ==
[~2024-03-29] VITALS: Ht 160 cm; Wt 54.4 kg
[2024-03-29] MEDS ORDERED: SODIUM CHLORIDE 0.9% 500 ML IV ONE (19:55)
[2024-03-29] MEDS ORDERED: Ondansetron Hydrochloride 4 MG/2 ML VIAL IV ONE (19:55)
[2024-03-29 20:07] LABS: BASO # 0.1 10*3/uL (0.0-0.1); BASO % 0.7 % (0.0-1.0); EOS # 0.1 10*3/uL (0.0-0.4); EOS % 1.1 % (1.0-4.0); HEMATOCRIT 34.2 % (37.0-47.0); MEAN CELL VOLUME 65.4 fl (81.0-99.0); MEAN CORPUSCULAR HGB 20.1 pg (27.0-31.0); MEAN CORPUSCULAR HGB CONC 30.7 g/dl (33.0-37.0); MEAN PLATELET VOLUME 9.5 fl (9.6-12.3); MONO # 0.6 10*3/uL (0.1-1.0); MONO % 8.4 % (3.0-9.0); NEUT # 4.1 10*3/uL (2.3-7.9); NEUT % 56.1 % (47.0-73.0); PLATELET COUNT AUTOMATED 284 10*3/uL (130-400); RED BLOOD COUNT 5.23 10*6/uL (4.10-5.10); RED CELL DISTRI WIDTH 15.4 % (0-14.5); WHITE BLOOD COUNT 7.3 10*3/uL (4.8-10.8)
[2024-03-29 20:34] LABS: ALKALINE PHOSPHATASE 59 U/L (46-116); BUN 10 mg/dl (9-23); CHLORIDE 104 mmol/L (98-107); LIPASE 33 U/L (12-53); POTASSIUM 3.7 mmol/L (3.4-5.1); SGPT/ALT 9 U/L (5-49); TOTAL PROTEIN 6.6 gm/dL (6.0-8.0)
[2024-03-29] MEDS ORDERED: Phenergan25 MG PO (22:34)
== END 2024-03-29 22:53 | disposition home or self-care (01) ==
LOC: ED 17:18
PROVIDERS: Nurse Practitioner Family
DX: R11.2 Nausea with vomiting, unspecified (principal); J44.9 Chronic obstructive pulmonary disease, unspecified; K21.9 Gastro-esophageal reflux disease without esophagitis; D64.9 Anemia, unspecified; G43.909 Migraine, unspecified, not intractable, without status migrainosus; Z88.6 Allergy status to analgesic agent; Z88.8 Allergy status to other drugs, medicaments and biological substances; Z98.890 Other specified postprocedural states; Z90.49 Acquired absence of other specified parts of digestive tract; Z90.710 Acquired absence of both cervix and uterus; Z87.891 Personal history of nicotine dependence

== ENCOUNTER 2024-06-24 08:46 | Emergency (ER) | payer OTHER ==
[~2024-06-24] VITALS: Wt 61.5 kg
[~2024-06-24 08:46] MED LIST changes: +Phenergan25 MG PO
[2024-06-24] MEDS ORDERED: MAGNESIUM SULFATE 50 ML IV ONE (09:15)
[2024-06-24] MEDS ORDERED: Albuterol Sulfate 2.5 MG/3 ML VIAL NEB ONE (09:15)
[2024-06-24] MEDS ORDERED: methylPREDNISolone sod succ 125 MG VIAL IV ONE (09:15)
[2024-06-24 09:32] LABS: BASO # 0.1 10*3/uL (0.0-0.1); BASO % 0.7 % (0.0-1.0); EOS # 0.1 10*3/uL (0.0-0.4); EOS % 0.8 % (1.0-4.0); HEMATOCRIT 33.8 % (37.0-47.0); MEAN CELL VOLUME 65.8 fl (81.0-99.0); MEAN CORPUSCULAR HGB 19.6 pg (27.0-31.0); MEAN CORPUSCULAR HGB CONC 29.9 g/dl (33.0-37.0); MEAN PLATELET VOLUME 9.5 fl (9.6-12.3); MONO # 0.7 10*3/uL (0.1-1.0); MONO % 7.1 % (3.0-9.0); NEUT # 6.3 10*3/uL (2.3-7.9); NEUT % 63.4 % (47.0-73.0); PLATELET COUNT AUTOMATED 332 10*3/uL (130-400); RED BLOOD COUNT 5.14 10*6/uL (4.10-5.10); RED CELL DISTRI WIDTH 16.2 % (0-14.5)
[2024-06-24 09:53] LABS: BUN 11 mg/dl (9-23); CHLORIDE 103 mmol/L (98-107); POTASSIUM 3.9 mmol/L (3.4-5.1)
[2024-06-24] MEDS ORDERED: AVPAK AZITHROM250 M1 PO (10:13)
[2024-06-24] MEDS ORDERED: PREDNISONE20 M1 PO (10:14)
== END 2024-06-24 10:57 | disposition home or self-care (01) ==
LOC: ED 08:46
PROVIDERS: Emergency Medicine
DX: J44.9 Chronic obstructive pulmonary disease, unspecified (principal); Z20.822 Contact with and (suspected) exposure to COVID-19; K21.9 Gastro-esophageal reflux disease without esophagitis; Z90.710 Acquired absence of both cervix and uterus; R07.89 Other chest pain; R06.02 Shortness of breath; Z87.442 Personal history of urinary calculi; Z88.6 Allergy status to analgesic agent; Z88.8 Allergy status to other drugs, medicaments and biological substances; Z98.890 Other specified postprocedural states; Z90.49 Acquired absence of other specified parts of digestive tract; Z87.891 Personal history of nicotine dependence

== ENCOUNTER 2024-08-12 22:49 | Emergency (ER) | payer OTHER ==
[~2024-08-12] VITALS: Wt 59.0 kg
[~2024-08-12 22:49] MED LIST changes: +AVPAK AZITHROM250 M1 PO
[2024-08-12 23:20] LABS: BASO # 0.1 10*3/uL (0.0-0.1); BASO % 0.8 % (0.0-1.0); EOS # 0.1 10*3/uL (0.0-0.4); EOS % 1.3 % (1.0-4.0); HEMATOCRIT 30.8 % (37.0-47.0); MEAN CELL VOLUME 65.4 fl (81.0-99.0); MEAN CORPUSCULAR HGB 19.3 pg (27.0-31.0); MEAN CORPUSCULAR HGB CONC 29.5 g/dl (33.0-37.0); MEAN PLATELET VOLUME 9.6 fl (9.6-12.3); MONO # 0.5 10*3/uL (0.1-1.0); MONO % 8.3 % (3.0-9.0); NEUT # 3.3 10*3/uL (2.3-7.9); NEUT % 52.9 % (47.0-73.0); PLATELET COUNT AUTOMATED 240 10*3/uL (130-400); RED BLOOD COUNT 4.71 10*6/uL (4.10-5.10); RED CELL DISTRI WIDTH 15.4 % (0-14.5); WHITE BLOOD COUNT 6.3 10*3/uL (4.8-10.8)
[2024-08-12 23:40] LABS: BUN 15 mg/dl (9-23); CHLORIDE 109 mmol/L (98-107); POTASSIUM 3.8 mmol/L (3.4-5.1)
== END 2024-08-13 00:25 | disposition home or self-care (01) ==
LOC: ED 22:49
PROVIDERS: Internal Medicine
DX: I95.9 Hypotension, unspecified (principal); R55 Syncope and collapse; D50.9 Iron deficiency anemia, unspecified; M25.561 Pain in right knee; M79.674 Pain in right toe(s); Z98.84 Bariatric surgery status; Z88.5 Allergy status to narcotic agent; Z88.6 Allergy status to analgesic agent; Z79.899 Other long term (current) drug therapy; Z98.890 Other specified postprocedural states; Z90.49 Acquired absence of other specified parts of digestive tract; Z90.710 Acquired absence of both cervix and uterus; Z87.891 Personal history of nicotine dependence